=== PATIENT | female | born 1940 | race Caucasian/White ===

== ENCOUNTER 2017-12-11 08:45 | Inpatient (IN) | payer MEDICARE ==
[~2017-12-11] VITALS: Ht 154.9 cm; Wt 52.4 kg
[~2017-12-11 08:45] MED LIST: AMLODIPINE BESYL5 MG PO; ASPIR 8181 MG PO; ATENOLOL100 MG PO; BENAZEPRIL HCL40 MG PO; CHLORTHALIDONE25 MG PO; COLESTIPOL HCL1 GM PO; DIGOXIN125 MCG PO; HYDROCHLOROTHIA25 MG PO; LYRICA75 MG PO; METFORMIN HCL500 MG PO; METOCLOPRAMIDE10 MG PO; NORCO 5-325 TA1 EACH PO; PROTONIX40 MG PO; UNK BP MED
[2017-12-11] MEDS ORDERED: SODIUM CHLORIDE 0.9% 1000ML 1,000 ML IV STA (09:35)
[2017-12-11] MEDS ORDERED: PANTOPRAZOLE 40 MG 10ML VIAL IV STA (09:35)
[2017-12-11] MEDS ORDERED: DIATRIZOATE MEGL/DIATRIZOA SOD 30 ML BTL PO ONE (09:42)
[2017-12-11] MEDS ORDERED: ONDANSETRON HCL 4 MG ORAL DISINTEGRATING TAB PO ONE (09:45)
[2017-12-11 10:31] LABS: BASOPHILS % 0.2 % (0.0-1.0); HEMATOCRIT 36.6 % (34.2-44.1); HEMOGLOBIN 12.4 g/dL (12.0-16.0); LYMPHOCYTES # (AUTO) 1.1 (1.0-3.2); LYMPHOCYTES % 8.8 % (18.0-39.1); MEAN CORPUSCULAR HEMOGLOBIN 29.2 pg (28-32); MEAN CORPUSCULAR HGB CONC 33.9 g/dL (31-35); MEAN CORPUSCULAR VOLUME 86.3 fL (81-99); MONOCYTES # (AUTO) 1.6 (0.2-0.8); MONOCYTES % 13.4 % (4.4-11.3); NEUTROPHILS # (AUTO) 9.3 (2.1-6.9); PLATELET COUNT 232 x10e3/uL (140-360); RED BLOOD COUNT 4.24 x10e6/uL (3.6-5.1); RED CELL DISTRIBUTION WIDTH 15.2 % (11.7-14.4)
[2017-12-11 10:42] LABS: CLARITY,URINE HAZY (CLEAR); COLOR,URINE YELLOW (YELLOW)
[2017-12-11 10:44] LABS: LEUKOCYTE ESTERASE ,URINE NEGATIVE (NEGATIVE); NITRITE,URINE NEGATIVE (NEGATIVE); PROTEIN,URINE DIPSTICK 3+ (NEGATIVE)
[2017-12-11 10:45] LABS: BILIRUBIN,URINE NEGATIVE (NEGATIVE); KETONES,URINE NEGATIVE (NEGATIVE); URINE UROBILINOGEN 0.2 mg/dL (0.2 - 1)
[2017-12-11 10:52] LABS: ALBUMIN/GLOBULIN RATIO 0.6 (0.8-2.0); ANION GAP 17.9 mmol/L (8-16); CALCIUM 9.4 mg/dL (8.4-10.2); CREATININE, SERUM 0.97 mg/dL (0.57-1.11); MAGNESIUM 1.2 MG/DL (1.3-2.1); WBC,URINE (MAN) 21-50 /HPF (0-5)
[2017-12-11 10:53] LABS: AMORPHOUS SEDIMENT,URINE FEW (FEW); BACTERIA,URINE MANY /HPF; EPITHELIAL CELLS,URINE RARE /LPF
[2017-12-11 10:58] LABS: POTASSIUM 2.9 mmol/L (3.5-5.1)
--- NOTE | 2017-12-11 10:58 | Diagnostic Imaging Report ---
EXAMINATION: Chest, CHEST SINGLE (PORTABLE) INDICATION: Chest pain COMPARISON: Chest 2 views 03/25/2015 FINDINGS: LINES: None. Heart: Normal cardiac silhouette. Vascular: The pulmonary vasculature is within normal limits. Atherosclerotic calcifications of the aortic arch. Mediastinum: No mediastinal, hilar, or axillary mass or lymphadenopathy. Lungs: No parenchymal mass. No focal consolidation. Pleura: No pleural effusion. No pneumothorax. Bones: No acute osseous abnormality. Degenerative changes of the thoracic spine. Soft tissues: Normal. Impression: No acute radiographic abnormality. Signed by: Dr. Manuel Nugent M.D. on 12/11/2017 10:54 AM
[2017-12-11] MEDS ORDERED: SODIUM CHLORIDE 0.9% 50ML 50 ML ONE (11:07)
[2017-12-11] MEDS ORDERED: IOPAMIDOL 370 MG/ML 200 ML INFUS..BTL INJ ONE (11:07)
[2017-12-11 11:11] LABS: CREATINE KINASE MB 1.3 ng/mL (0-5.0); THYROID STIMULATING HORMONE 0.34 uIU/mL (0.350-4.940)
[2017-12-11 11:19] LABS: INR 1.21; PROTHROMBIN TIME 14.4 seconds (11.9-14.5)
[2017-12-11] MEDS ORDERED: MAGNESIUM SULFATE 2GM/50ML 50 ML IV ONE (11:30)
[2017-12-11] MEDS ORDERED: KCL 40MEQ/0.9% SOD CHL 1,000 ML IV ONE (11:30)
[2017-12-11 11:36] LABS: LYMPHOCYTES % (MANUAL) 5 % (19-48); MONOCYTES % (MANUAL) 14 % (3.4-9.0); NEUTROPHILS % (MANUAL) 81 % (40-74); PLATELET ESTIMATE ADEQUATE; PLATELET MORPHOLOGY COMMENT NORMAL; RBC MORPHOLOGY COMMENT NORMAL
--- NOTE | 2017-12-11 11:54 | Diagnostic Imaging Report ---
EXAM: CT Abdomen and Pelvis WITH contrast INDICATION: Abdominal pain COMPARISON: None. TECHNIQUE: Abdomen and pelvis were scanned utilizing a multidetector helical scanner from the lung base to the pubic symphysis after administration of contrast. Coronal and sagittal reformations were obtained. Protocol: General survey IV CONTRAST: 100 mL of Isovue 370 ORAL CONTRAST: Gastroview COMPLICATIONS: None RADIATION DOSE: Total Exam DLP: 206.4 mGy*cm. CTDIvol has been reviewed. It is below the limits set by the Radiation Protocol Committee (RPC). FINDINGS: LINES: None. Lower thorax: No parenchymal abnormality. No pneumothorax. No pleural effusion. Liver: No focal mass. No hepatomegaly. Normal parenchyma. The hepatic and portal veins are patent. Gallbladder: Cholelithiasis. No gallbladder distention. Biliary tree: No intrahepatic duct dilation. No extrahepatic duct dilation. Spleen: No splenomegaly. No focal mass. Pancreas: Normal parenchymal enhancement. No focal mass. Normal pancreatic duct. No peripancreatic inflammatory changes. Kidneys: No obstructing calculi. No hydronephrosis. No solid enhancing mass. Simple cyst in the left kidney. No perinephric soft tissue inflammatory changes. Adrenal glands: No adrenal nodules.. Bladder: Normal urinary bladder. Pelvic organs: Hysterectomy. No ovaries are visualized. GI: Bowel wall thickening is present in the region of the gastroesophageal junction, series 2 image 9. Otherwise, no bowel wall thickening. No air-fluid levels. The stomach and small bowel are normal. Numerous diverticuli are present in the descending and sigmoid colon, without adjacent soft tissue inflammatory changes. Normal appendix. A moderate amount of retained feces limits intraluminal evaluation of the colon. Peritoneum/retroperitoneum: No pneumoperitoneum. No ascites. No drainable fluid collection. Lymph nodes: No lymphadenopathy. . Vessels: The abdominal aorta and iliac vessels are patent. The celiac, superior mesenteric, and inferior mesenteric arteries are patent. Single bilateral renal arteries are patent. Scattered atherosclerotic calcifications. Bones: No focal abnormality. . Soft tissues: No focal abnormality. IMPRESSION: No acute abnormality of the abdomen and pelvis. Bowel wall thickening of the gastroesophageal junction may represent Chad fundoplication or hernia repair. Correlate with surgical history. Cholelithiasis. Diverticulosis without evidence of diverticulitis. Signed by: Dr. Manuel Nugent M.D. on 12/11/2017 11:51 AM
[2017-12-11] MEDS: METRONIDAZOLE 500MG/NS 100ML 100 ML IV SCH ×3 (12:00→19:20)
[2017-12-11] MEDS: PIPER-TAZ 3.375 GM 50 ML IV SCH ×2 (12:10→18:15)
--- OUTSIDE RECORDS SUMMARY | 2017-12-11 12:28 | XMS REPORT ---
Author [facility] Address Unknown Phone Unavailable Care Team Providers Care [employer] Name Role Phone FAWAD DAVIS Unavailable Unavailable Problems This patient has no known problems. Allergies, Adverse Reactions, Alerts This patient has no known allergies or adverse reactions. Medications This patient has no known medications. Results Test Description Test Time Test Comments Text Results Atomic Results Result Comments CHEST SINGLE (PORTABLE) [place] [address] Patient Name: BETH HANSON MR #: [id number] : 1940 Age/Sex: 77/F Req #: [id number] Adm Physician: Ordered by: FAWAD DAVIS MD Report #: [id number] Location: ER Room/Bed: Procedure: [id number] DX/CHEST SINGLE (PORTABLE) Exam Date: 12/11/17 Exam Time: 1000 REPORT STATUS: Signed EXAMINATION: Chest, CHEST SINGLE (PORTABLE) INDICATION: Chest pain COMPARISON : Chest 2 views 03/25/2015 FINDINGS: LINES: None. Heart : Normal cardiac silhouette. Vascular: The pulmonary vasculature is within normal limits. Atherosclerotic calcifications of the aortic arch. Mediastinum: No mediastinal, hilar, or axillary mass or lymphadenopathy. Lungs: No parenchymal mass. No focal consolidation. Pleura: No pleural effusion. No pneumothorax. Bones: No acute osseous abnormality. Degenerative changes of the thoracic spine. Soft tissues: Normal. Impression: No acute radiographic abnormality. Signed by: Dr. Ginna Nugent M.D. on 12/11/2017 10:54 AM Dictated By: GINNA NUGENT MD 53 Transcribed By: DAVIDSON on 12/11/171053 COPY TO: FAWAD DAVIS MD CT ABDOMEN/PELVIS W [place] [address] Patient Name: BETH HANSON MR #: [id number] : 1940 Age/Sex: 77/F Req #: [id number] Adm Physician: Ordered by: FAWAD DAVIS MD Report #: [id number] Location: ER Room/Bed: Procedure: [id number] CT/CT ABDOMEN/PELVIS W Exam Date: 12/11/17 Exam Time: 1117 REPORT STATUS: Signed EXAM: CT Abdomen and Pelvis WITH contrast INDICATION: Abdominal pain COMPARISON: None. TECHNIQUE: Abdomen and pelvis were scanned utilizing a multidetector helical scanner from the lung base to the pubic symphysis after administration of contrast. Coronal and sagittal reformations were obtained. Protocol: General survey IV CONTRAST: 100 mL of Isovue 370 ORAL CONTRAST: Gastroview COMPLICATIONS: None RADIATION DOSE: Total Exam DLP: 206.4 mGy*cm. CTDIvol has been reviewed. It is below the limits set by the Radiation Protocol Committee (RPC). FINDINGS: LINES: None. Lower thorax: No parenchymal abnormality. No pneumothorax. No pleural effusion. Liver: No focal mass. No hepatomegaly. Normal parenchyma. The hepatic and portal veins are patent. Gallbladder: Cholelithiasis. No gallbladder distention. Biliary tree: No intrahepatic duct dilation. No extrahepatic duct dilation. Spleen: No splenomegaly. No focal mass. Pancreas: Normal parenchymal enhancement. No focal mass. Normal pancreatic duct. No peripancreatic inflammatory changes. Kidneys : No obstructing calculi. No hydronephrosis. No solid enhancing mass. Simple cyst in the left kidney. No perinephric soft tissue inflammatory changes. Adrenal glands: No adrenal nodules.. Bladder: Normal urinary bladder. Pelvic organs: Hysterectomy. No ovaries are visualized. GI: Bowel wall thickening is present in the region of the gastroesophageal junction, series 2 image 9. Otherwise, no bowel wall thickening. No air-fluid levels. The stomach and small bowel are normal. Numerous diverticuli are present in the descending and sigmoid colon, without adjacent soft tissue inflammatory changes. Normal appendix. A moderate amount of retained feces limits intraluminal evaluation of the colon. Peritoneum/retroperitoneum: No pneumoperitoneum. No ascites. No drainable fluid collection. Lymph nodes: No lymphadenopathy. . Vessels: The abdominal aorta and iliac vessels are patent. The celiac, superior mesenteric , and inferior mesenteric arteries are patent. Single bilateral renal arteries are patent. Scattered atherosclerotic calcifications. Bones: No focal abnormality. . Soft tissues: No focal abnormality. IMPRESSION : No acute abnormality of the abdomen and pelvis. Bowel wall thickening of the gastroesophageal junction may represent Chad fundoplication or hernia repair. Correlate with surgical history. Cholelithiasis. Diverticulosis without evidence of diverticulitis. Signed by: Dr. Ginna Nugent M.D. on 12/11/2017 11:51 AM Dictated By: GINNA NUGENT MD 1151 Transcribed By: DAVIDSON on 12/11/17 1151 COPY TO: FAWAD DAVIS MD
[2017-12-11] MEDS ORDERED: ACETAMINOPHEN 325 MG TAB PO STA (14:29)
[2017-12-11] MEDS: ONDANSETRON HCL 4 MG ORAL DISINTEGRATING TAB PO PRN (14:30)
[2017-12-11] MEDS ORDERED: ACETAMINOPHEN 325 MG TAB PO ONE (15:00)
[2017-12-11] MEDS ORDERED: ACETAMINOPHEN 325 MG TAB PO PRN (15:30)
[2017-12-11] MEDS ORDERED: IBUPROFEN 600 MG TAB PO ONE (16:00)
[2017-12-11] MEDS: MORPHINE SULFATE 2 MG/ML SYR IV PRN (16:05)
[2017-12-11] MEDS ORDERED: METOPROLOL TARTRATE INJ 1 MG/ML VIAL IV PRN (16:15)
--- NOTE | 2017-12-11 17:36 | History and Physical ---
CHIEF COMPLAINT: A 77-year-old female comes in with abdominal pain. HISTORY OF PRESENTING ILLNESS: This is Ms. Penny, who has a multiple history of abdominal pain and abdominal symptoms, was in her usual state of health until the patient started with nausea and decreased appetite and had some fever, too. The patient did not go to the emergency room, but today the patient's pain was intractable and the patient came in and was admitted for diverticulitis. PAST MEDICAL HISTORY: History of hypertension. Patient has a history of hyperlipidemia, a history of gastrointestinal disorders in the past. Patient also has history of hiatal hernia. SURGICAL HISTORY: History of Chad's fundoplication x2, history of hysterectomy. MEDICATIONS: She does not remember but remembers atenolol dosage unknown and hydrochlorothiazide dosage unknown and also a statin dosage unknown. ALLERGIES: SEE NURSE'S NOTE. SOCIAL HISTORY: No ETOH. No IV drug abuse either and no drug abuse. REVIEW OF SYSTEMS: Negative for chest pain. Positive for some shortness of breath. Positive for nausea, no vomiting, no diarrhea, no constipation, no rectal bleed. No hematochezia, no hematemesis. Abdominal pain positive. No diplopia, no blurry vision. PHYSICAL EXAMINATION GENERAL: Patient is alert and oriented x3. VITAL SIGNS: Temperature 100.9. Pulse of 93. Blood pressure is 151/67. HEENT: Normocephalic, atraumatic. There is no icterus present. CARDIOVASCULAR: S1 and S2, regular, tachycardic. ABDOMEN: Tender in the left lower quadrant. No organomegaly, no masses found either. EXTREMITIES: No clubbing, no cyanosis, no edema. BACK: Normal. SKIN: No rashes present. NEUROLOGICAL: Alert and oriented x3. Chest x-ray normal. Abdominal CT shows multiple gallstones and multiple diverticula without inflammatory changes. Laboratory tests: CBC shows white count is 12, no left shift. Comprehensive metabolic panel: Potassium is 2.9, glucose of 151. Cardiac labs are normal. UA shows 21-50 thousand white cells and RBCs present. ASSESSMENT: Acute left lower quadrant abdominal pain suggesting diverticulitis but CT was negative, cholelithiasis on CT scan, and probable thickening of the gastroesophageal junction suggestive of Chad, and CT also shows diverticulosis without evidence of diverticulitis. PLAN: To keep the patient in. A surgical consult will be done with Dr. Quiñonez, too. Will continue monitoring the patient. Further recommendations on clinical course. Also, the patient had hypomagnesemia and hypokalemia, which we will continue. Also, for the urinary tract infection and cystitis, a urine culture has been sent and the patient has been put on Zosyn and Flagyl, too. We will see how the patient progresses tomorrow. Also will give her IV labetalol if needed for blood pressure control and also heart rate control. Job#: [id number] EV
[2017-12-11] MEDS ORDERED: KCL 20MEQ/.9 SOD CHL 1,000 ML IV ONE (18:00)
[2017-12-11] MEDS: PANTOPRAZOLE 40 MG 10ML VIAL IV SCH (18:08)
[2017-12-11] MEDS ORDERED: TOPROL XL50 MG PO (18:33)
[2017-12-11] MEDS ORDERED: DICYCLOMINE HCL20 MG PO (18:33)
[2017-12-11] MEDS ORDERED: ULTRAM50 MG PO (18:33)
[2017-12-11] MEDS ORDERED: XANAX0.5 MG PO (18:33)
[2017-12-11] MEDS ORDERED: DIPHENOXYLATE-1 EACH PO (18:33)
[2017-12-11 21:10] VITALS: BP 136/63
[2017-12-11 22:47] VITALS: BP 136/63
[2017-12-12] VITALS (7 sets, daily range): BP systolic 116–144; BP diastolic 58–65
[2017-12-12] MEDS: MORPHINE SULFATE 2 MG/ML SYR IV PRN (01:14)
[2017-12-12] MEDS: ONDANSETRON HCL 4 MG ORAL DISINTEGRATING TAB PO PRN ×3 (01:15→22:25)
[2017-12-12 05:01] LABS: CREATINE KINASE MB 1.4 ng/mL (0-5.0)
[2017-12-12] MEDS: PIPER-TAZ 3.375 GM 50 ML IV SCH ×4 (06:00→17:39)
[2017-12-12] MEDS: METRONIDAZOLE 500MG/NS 100ML 100 ML IV SCH ×4 (06:00→17:39)
[2017-12-12 06:27] LABS: BASOPHILS % 0.2 % (0.0-1.0); EOSINOPHILS % 0.2 % (0.0-6.0); HEMATOCRIT 28.1 % (34.2-44.1); HEMOGLOBIN 9.4 g/dL (12.0-16.0); LYMPHOCYTES # (AUTO) 0.9 (1.0-3.2); LYMPHOCYTES % 15.3 % (18.0-39.1); MEAN CORPUSCULAR HEMOGLOBIN 29.2 pg (28-32); MEAN CORPUSCULAR HGB CONC 33.5 g/dL (31-35); MEAN CORPUSCULAR VOLUME 87.3 fL (81-99); MONOCYTES # (AUTO) 0.9 (0.2-0.8); MONOCYTES % 15.3 % (4.4-11.3); NEUTROPHILS # (AUTO) 4.2 (2.1-6.9); NEUTROPHILS % 68.5 % (38.7-80.0); PLATELET COUNT 190 x10e3/uL (140-360); RED BLOOD COUNT 3.22 x10e6/uL (3.6-5.1); RED CELL DISTRIBUTION WIDTH 15.5 % (11.7-14.4)
[2017-12-12 06:47] LABS: ALANINE AMINOTRANSFERASE 10 IU/L (0-55); ALBUMIN 2.4 g/dL (3.5-5.0); ALBUMIN/GLOBULIN RATIO 0.8 (0.8-2.0); ALKALINE PHOSPHATASE 53 IU/L (40-150); ANION GAP 12.8 mmol/L (8-16); BLOOD UREA NITROGEN 9 mg/dL (7-26); BUN/CREATININE RATIO 12 (6-25); CALCIUM 8.4 mg/dL (8.4-10.2); CARBON DIOXIDE 21 mmol/L (22-29); CHLORIDE 106 mmol/L (98-107); CREATININE, SERUM 0.73 mg/dL (0.57-1.11); EST GLOMERULAR FILTRATION RATE > 60 ML/MIN (60-); GLUCOSE 99 mg/dL (74-118); MAGNESIUM 1.5 MG/DL (1.3-2.1); POTASSIUM 3.8 mmol/L (3.5-5.1); SODIUM 136 mmol/L (136-145)
[2017-12-12] MEDS: ACETAMINOPHEN 325 MG TAB PO PRN ×3 (07:26→18:20)
[2017-12-12] MEDS: PANTOPRAZOLE SOD 40 MG TABEC PO SCH (07:30)
[2017-12-12 08:34] LABS: CREATINE KINASE MB 1.2 ng/mL (0-5.0)
[2017-12-12] MEDS: DIGOXIN 0.125 MG TAB PO SCH (09:00)
[2017-12-12] MEDS: PANTOPRAZOLE 40 MG 10ML VIAL IV SCH (09:00)
[2017-12-12] MEDS: DICYCLOMINE HCL 20 MG TAB PO SCH ×4 (09:00→20:43)
[2017-12-12] MEDS: METOPROLOL SUCCINATE 50 MG TAB XL PO SCH (09:00)
[2017-12-12] MEDS: BENAZEPRIL HCL 10 MG TAB PO SCH (09:00)
[2017-12-12] MEDS: AMLODIPINE BESYLATE 5 MG TAB PO SCH (09:00)
[2017-12-12] MEDS: TRAMADOL HCL 50 MG TAB PO SCH ×2 (12:00→17:18)
[2017-12-12] MEDS: SODIUM CHLORIDE 0.45% 1,000 ML IV SCH (13:15)
--- NOTE | 2017-12-12 17:02 | Consultation ---
REFERRING PHYSICIAN: Dr. Esau Echevarria DATE OF CONSULTATION: December 12, 2017 HISTORY OF PRESENT ILLNESS: Patient is a 77-year-old female who was admitted to the hospital with complaints of mid abdominal pain. Patient says the pain started about almost a week ago. She had associated nausea, vomiting and diarrhea. Says the pain has persisted. She had a CT of the abdomen which revealed gallstones. She also says the pain goes to her back. She has no symptoms of jaundice. PAST MEDICAL HISTORY: Significant for hypertension. She has had previous laparoscopic repair of hiatal hernia. MEDICATIONS: At home are Xanax, amlodipine, benazepril, Bentyl, digoxin, diphenoxylate, hydrochlorothiazide, metoprolol and tramadol. ALLERGIES: She has no known allergies. FAMILY HISTORY: Noncontributory. SOCIAL HISTORY: The patient does not smoke cigarettes or drink alcohol. REVIEW OF SYSTEMS: Is as stated above otherwise. She has not had any fever or weight loss. PHYSICAL EXAMINATION GENERAL: The patient is awake and alert, in no distress. VITAL SIGNS: Normal. HEENT: Unremarkable. Sclera is nonicteric. NECK: Supple. No masses. LUNGS: Equal breath sounds, clear bilaterally. CARDIAC: Regular rate and rhythm with no murmur. ABDOMEN: Tender in the mid abdomen. There slight distention. There is no mass. No were signs of peritonitis. There is no organomegaly. EXTREMITIES: Have no edema. Pulses were palpable. NEUROLOGIC: Grossly intact. LABORATORY DATA: White blood cell count on admission was 12,000, repeat is 6,000, hemoglobin 12.4, hematocrit 36 and repeat is 9.4 and 28. Platelet count is normal. Chemistries are essentially normal with normal electrolytes, normal liver function tests, normal lipase. ASSESSMENT: A 77-year-old female with abdominal pain very likely due to gallbladder disease as she has gallstones. They see bowel wall thickening in the area of gastroesophageal junction. This is likely related to the previous hiatal hernia surgery. The patient likely will benefit from cholecystectomy which I plan to schedule for tomorrow. Procedure was explained to the patient including risks, benefits and alternatives. She understands the procedure. She has had the opportunity to ask questions. She is aware of the possible need for open surgery. Thank you for asking me to see Ms. Penny. Job#: [id number] DG
[2017-12-12] MEDS: ALPRAZOLAM 0.5 MG TAB PO SCH (20:43)
[2017-12-13] VITALS (8 sets, daily range): BP systolic 125–161; BP diastolic 60–68
[2017-12-13] MEDS: PIPER-TAZ 3.375 GM 50 ML IV SCH ×4 (01:20→18:00)
[2017-12-13] MEDS: METRONIDAZOLE 500MG/NS 100ML 100 ML IV SCH ×4 (02:06→18:00)
[2017-12-13] MEDS: TRAMADOL HCL 50 MG TAB PO SCH ×4 (02:07→18:00)
[2017-12-13] MEDS ORDERED: BUPIVACAINE HCL 0.5% INJ 30 ML VIAL INJ ONE (06:03)
[2017-12-13 06:41] LABS: BASOPHILS % 0.3 % (0.0-1.0); EOSINOPHILS % 0.6 % (0.0-6.0); HEMATOCRIT 29.5 % (34.2-44.1); HEMOGLOBIN 9.6 g/dL (12.0-16.0); LYMPHOCYTES # (AUTO) 1.7 (1.0-3.2); LYMPHOCYTES % 27.1 % (18.0-39.1); MEAN CORPUSCULAR HEMOGLOBIN 28.8 pg (28-32); MEAN CORPUSCULAR HGB CONC 32.5 g/dL (31-35); MEAN CORPUSCULAR VOLUME 88.6 fL (81-99); MONOCYTES # (AUTO) 0.7 (0.2-0.8); MONOCYTES % 11.7 % (4.4-11.3); NEUTROPHILS # (AUTO) 3.7 (2.1-6.9); NEUTROPHILS % 59.7 % (38.7-80.0); PLATELET COUNT 232 x10e3/uL (140-360); RED BLOOD COUNT 3.33 x10e6/uL (3.6-5.1); RED CELL DISTRIBUTION WIDTH 16.1 % (11.7-14.4)
[2017-12-13] MEDS ORDERED: FAMOTIDINE 20 MG/2 ML VIAL IV ONE (06:53)
[2017-12-13 07:05] LABS: ANION GAP 12.3 mmol/L (8-16); BLOOD UREA NITROGEN 7 mg/dL (7-26); BUN/CREATININE RATIO 9 (6-25); CALCIUM 8.3 mg/dL (8.4-10.2); CARBON DIOXIDE 22 mmol/L (22-29); CHLORIDE 102 mmol/L (98-107); CREATININE, SERUM 0.75 mg/dL (0.57-1.11); EST GLOMERULAR FILTRATION RATE > 60 ML/MIN (60-); GLUCOSE 93 mg/dL (74-118); POTASSIUM 3.3 mmol/L (3.5-5.1); SODIUM 133 mmol/L (136-145)
[2017-12-13] MEDS ORDERED: MORPHINE SULFATE 2 MG/ML SYR IV PRN (07:45)
[2017-12-13] MEDS ORDERED: MORPHINE SULFATE 4 MG/ML SYR IV PRN (07:45)
[2017-12-13] MEDS ORDERED: ONDANSETRON HCL INJ 2 MG/ML VIAL IV PRN (07:45)
--- NOTE | 2017-12-13 08:06 | Operative Report ---
DATE OF PROCEDURE: December 13, 2017 PREOPERATIVE DIAGNOSIS: Acute and chronic cholecystitis and cholelithiasis. POSTOPERATIVE DIAGNOSIS: Acute and chronic cholecystitis and cholelithiasis. PROCEDURES 1. Diagnostic laparoscopy. 2. Laparoscopic cholecystectomy. RELAY ASSEMBLER: None. ANESTHESIA: General endotracheal. INDICATIONS AND FINDINGS: Patient is a 77-year-old female admitted to the hospital with the complaints of midabdominal pain associated with nausea and vomiting. At surgery, the patient was found to have a gallbladder that massively distended containing sludge and stones. The cystic duct was about 3 mm in diameter. Common bile duct was about 6 mm in diameter. Liver, stomach and lower abdomen all appeared normal. TECHNIQUE: After adequate general endotracheal anesthesia and with the patient in the supine position, the abdomen was prepped and draped in a sterile fashion with Derik solution. Skin of the umbilicus was infiltrated with 0.5% Marcaine. An incision was made in the umbilicus. Abdominal wall was elevated and Veress needle was introduced. Pneumoperitoneum was then created. A 10-mm trocar and cannula was then passed through the umbilical wound. Laparoscopic camera was introduced. Initial laparoscopy revealed the gallbladder to be very distended. Liver, stomach and lower abdomen all appeared normal. A 10-mm trocar and cannula was placed in the epigastrium and two 5-mm trocars and cannulas placed in the right upper quadrant. These were placed under direct vision. The fundus of the gallbladder was grasped and retracted superiorly. Neck of the gallbladder was grasped and retracted laterally. Peritoneum over the neck of the gallbladder was incised. The gallbladder cystic duct junction was dissected free. Cystic artery was also dissected free. The neck of the gallbladder completely dissected free. The cystic artery was divided between Hemoclips close to the gallbladder. The cystic duct was also divided between Hemoclips with 3 clips being left on the common bile duct side. The gallbladder was then dissected free from the liver using scissors and electrocautery. Once it was entirely free, it was placed into an Endopouch and brought out through the epigastric cannula and contained sludge and multiple small stones. Gallbladder bed was inspected for hemostasis, which was seen to be adequate. It was irrigated with saline. All fluid aspirated and inspected once again for hemostasis, which was seen to be adequate. Instruments and cannulas were then removed. Pneumoperitoneum was evacuated. Wounds were then closed. Fascia in the umbilical and epigastric wound closed with 0 Vicryl. Skin to all wounds closed with raven. Sterile dressings were applied to each wound. The patient tolerated the procedure well. Estimated blood loss was 10 mL. There were no complications. All counts were correct. Patient was taken to the recovery room in satisfactory condition. Job#: [id number] RI cc:KITA MARLEY MD
[2017-12-13 09:00] LABS: EOSINOPHILS % (MANUAL) 1 % (0-7); LYMPHOCYTES % (MANUAL) 34 % (19-48); METAMYELOCYTES % (MANUAL) 1 % (0-0); MONOCYTES % (MANUAL) 8 % (3.4-9.0); NEUTROPHILS % (MANUAL) 54 % (40-74); PLATELET ESTIMATE ADEQUATE
[2017-12-13] MEDS: AMLODIPINE BESYLATE 5 MG TAB PO SCH (09:00)
[2017-12-13 09:01] LABS: ANISOCYTOSIS SLIGHT; HYPOCHROMASIA SLIGHT; PLATELET MORPHOLOGY COMMENT NORMAL; RBC MORPHOLOGY COMMENT NORMAL
[2017-12-13] MEDS: BENAZEPRIL HCL 10 MG TAB PO SCH (10:00)
[2017-12-13] MEDS: DIGOXIN 0.125 MG TAB PO SCH (10:00)
[2017-12-13] MEDS: PANTOPRAZOLE SOD 40 MG TABEC PO SCH (10:00)
[2017-12-13] MEDS: METOPROLOL SUCCINATE 50 MG TAB XL PO SCH (10:00)
[2017-12-13] MEDS: DICYCLOMINE HCL 20 MG TAB PO SCH ×4 (10:00→21:12)
[2017-12-13] MEDS: ACETAMINOPHEN 325 MG TAB PO PRN (11:00)
[2017-12-13] MEDS: HYDROCODONE/APAP 5MG-325MG TAB PO PRN ×2 (12:30→18:30)
[2017-12-13] MEDS ORDERED: ACETAMINOPHEN 1000 MG/100 ML IV PRN (14:00)
[2017-12-13] MEDS ORDERED: SODIUM CHLORIDE 0.9% 1000ML 500 ML IV ONE (14:00)
[2017-12-13] MEDS: SODIUM CHLORIDE 0.45% 1,000 ML IV SCH (15:55)
[2017-12-13] MEDS ORDERED: PROPOFOL IV EMULSION 10 MG/ML 20 ML VIAL ONE (18:24)
[2017-12-13] MEDS ORDERED: METOCLOPRAMIDE HCL 10 MG/2ML VIAL ONE (18:24)
[2017-12-13] MEDS ORDERED: GLYCOPYRROLATE INJ 1MG/ 5 ML SYR ONE (18:24)
[2017-12-13] MEDS ORDERED: LIDOCAINE HCL 2% LOCAL INJ 5 ML SDV VIAL INJ ONE (18:24)
[2017-12-13] MEDS ORDERED: ROCURONIUM BROMIDE 10 MG/ML 5ML VIAL ONE (18:24)
[2017-12-13] MEDS ORDERED: ONDANSETRON HCL INJ 2 MG/ML VIAL ONE (18:24)
[2017-12-13] MEDS ORDERED: SEVOFLURANE INHAL SOLN 250 ML PEN BTL ONE (18:24)
[2017-12-13] MEDS ORDERED: NEOSTIGMINE 5 MG/5ML SYR ONE (18:24)
[2017-12-13] MEDS ORDERED: DEXAMETHASONE SOD PHOS INJ 4 MG/ML VIAL ONE (18:24)
[2017-12-13] MEDS ORDERED: FENTANYL CITRATE/PF 100MCG/2 ML INJ ONE (18:30)
[2017-12-13] MEDS: ALPRAZOLAM 0.5 MG TAB PO SCH (21:12)
[2017-12-14 00:27] VITALS: BP 131/67
[2017-12-14] MEDS: TRAMADOL HCL 50 MG TAB PO SCH ×4 (01:01→17:11)
[2017-12-14] MEDS: METRONIDAZOLE 500MG/NS 100ML 100 ML IV SCH ×4 (01:01→18:27)
[2017-12-14] MEDS: PIPER-TAZ 3.375 GM 50 ML IV SCH ×3 (02:00→12:39)
[2017-12-14] MEDS: SODIUM CHLORIDE 0.45% 1,000 ML IV SCH ×2 (04:21→18:44)
[2017-12-14 04:57] VITALS: BP 134/65
[2017-12-14 07:15] LABS: FERRITIN 129.33 ng/mL (4.63-204.00)
[2017-12-14 07:38] LABS: FOLATE 9.4 ng/mL (7.0-15.4)
[2017-12-14] MEDS: PANTOPRAZOLE SOD 40 MG TABEC PO SCH (08:00)
[2017-12-14] MEDS: DICYCLOMINE HCL 20 MG TAB PO SCH ×2 (09:00→10:25)
[2017-12-14] MEDS: DIGOXIN 0.125 MG TAB PO SCH (09:13)
[2017-12-14] MEDS: AMLODIPINE BESYLATE 5 MG TAB PO SCH (09:13)
[2017-12-14] MEDS: BENAZEPRIL HCL 10 MG TAB PO SCH (09:13)
[2017-12-14] MEDS: DICYCLOMINE HCL 10 MG CAP PO SCH ×3 (09:13→20:46)
[2017-12-14] MEDS: METOPROLOL SUCCINATE 50 MG TAB XL PO SCH (09:13)
[2017-12-14] MEDS: HYDROCODONE/APAP 5MG-325MG TAB PO PRN (09:14)
[2017-12-14 12:00] VITALS: BP_SYST 126; BP_SYST 143; BP_DIAS 61; BP_DIAS 64
[2017-12-14 16:00] VITALS: BP 145/65
[2017-12-14] MEDS: PIPER-TAZ 3.375 GM 100 ML IV SCH (17:11)
[2017-12-14 20:09] VITALS: BP 141/64
[2017-12-14] MEDS: ALPRAZOLAM 0.5 MG TAB PO SCH (20:46)
[2017-12-14] MEDS: ACETAMINOPHEN 325 MG TAB PO PRN (20:46)
[2017-12-15] VITALS: BP 146/65
[2017-12-15] MEDS: PIPER-TAZ 3.375 GM 100 ML IV SCH ×2 (00:30→05:58)
[2017-12-15] MEDS: SODIUM CHLORIDE 0.45% 1,000 ML IV SCH (00:30)
[2017-12-15] MEDS: TRAMADOL HCL 50 MG TAB PO SCH ×2 (00:30→05:33)
[2017-12-15] MEDS: METRONIDAZOLE 500MG/NS 100ML 100 ML IV SCH ×2 (01:10→05:33)
[2017-12-15] MEDS ORDERED: POTASSIUM CHLORIDE 20 MEQ TAB CR PO STA (02:11)
[2017-12-15] MEDS ORDERED: POTASSIUM CHLORIDE 20 MEQ TAB CR PO ONE (03:30)
[2017-12-15 04:00] VITALS: BP 128/65
[2017-12-15] MEDS: ACETAMINOPHEN 325 MG TAB PO PRN (05:58)
[2017-12-15] MEDS ORDERED: CYANOCOBALAMIN INJ 1,000 MCG/ML VIAL IM SCH (09:00)
[2017-12-15] MEDS ORDERED: IRON-VITAMIN-MINERAL CAPSULE PO SCH (09:00)
[2017-12-15] MEDS ORDERED: DICYCLOMINE HCL 20 MG TAB PO SCH (09:00)
[2017-12-15] MEDS: AMLODIPINE BESYLATE 5 MG TAB PO SCH (09:58)
[2017-12-15] MEDS: PANTOPRAZOLE SOD 40 MG TABEC PO SCH (09:58)
[2017-12-15] MEDS: BENAZEPRIL HCL 10 MG TAB PO SCH (10:02)
[2017-12-15] MEDS: METOPROLOL SUCCINATE 50 MG TAB XL PO SCH (10:02)
[2017-12-15] MEDS: DIGOXIN 0.125 MG TAB PO SCH (10:02)
== END 2017-12-15 11:08 | disposition home or self-care (01) | DRG 419 ==
LOC: ER 09:34 → ERHOLD 12:25 → MED/SURG2 20:23
PROVIDERS: ADMIT Family Medicine; ATTEND Family Medicine
PROC: 0FT44ZZ Resection of Gallbladder, Percutaneous Endoscopic Approach (ICD-10-PCS; principal; 2017-12-13 06:55)
DX: K80.13 Calculus of gallbladder with acute and chronic cholecystitis with obstruction (principal); K21.9 Gastro-esophageal reflux disease without esophagitis; E78.5 Hyperlipidemia, unspecified; E83.42 Hypomagnesemia; E87.6 Hypokalemia; N30.90 Cystitis, unspecified without hematuria; I10 Essential (primary) hypertension; E86.0 Dehydration; K57.90 Diverticulosis of intestine, part unspecified, without perforation or abscess without bleeding; D64.9 Anemia, unspecified; R19.7 Diarrhea, unspecified
CPT/HCPCS: 36415; 71045; 74177; 80048; 80053; 81001; 82140; 82150; 82550; 82553; 82607; 82728; 82746; 83540; 83605; 83690; 83735; 84132; 84443; 84466; 84484; 85025; 85045; 85610; 85730; 87040; 87086; 87186; 88304; 93005; 99285; J1100; J2001; J2270; J2405; J2543; J2765; J7030; Q9967

== ENCOUNTER 2017-12-17 23:00 | Inpatient (IN) | payer MEDICARE ==
[~2017-12-17] VITALS: Ht 157.5 cm; Wt 49.1 kg
[~2017-12-17 23:00] MED LIST changes: +DICYCLOMINE HCL20 MG PO; +DIPHENOXYLATE-1 EACH PO; +TOPROL XL50 MG PO; +ULTRAM50 MG PO; +XANAX0.5 MG PO
[2017-12-17] MEDS ORDERED: ACETAMINOPHEN 1000 MG/100 ML IV STA (23:03)
--- OUTSIDE RECORDS SUMMARY | 2017-12-17 23:04 | XMS REPORT | Continuity of Care Document ---
Author Author [facility] Organization [facility] Address [address] [place] [address] Phone Unavailable Care Team Providers Care Embedded Linux Engineer Name Role Phone SHANE WORTHY MD PCP Insurance Providers Guarantor Beth Hanson Address [address] [place] [address] Email PTDECLINED Payer Medicare A & B Policy Number [id number] Subscriber's Name Beth Hanson Relationship 18 Self / Same As Patient Group Name RETIRED Effective Date 07 Advance Directives Directive Response Recorded Date/Time Does the patient have an advance directive? No 12/11/17 10:40pm If yes, is advance directive on file with [facility]? No 12/11/17 10:40pm If not on file with [facility] will patient provide a copy? No 12/11/17 10:40pm Do you have a Directive to Physician? No 12/11/17 12:03pm Do you have a Medical Power of Learning And Development Assistant? No 12/11/17 12:03pm Do you have an out of hospital Do Not Resuscitate Order? No 12/11/17 12:03pm Do you have any special needs we should be aware of? No 12/11/17 12:03pm Do you have a support person here with you today? Yes 12/11/17 12:03pm Did patient receive Notice of Privacy Practices? Yes 12/11/17 12:03pm Did patient receive patient rights and responsibilities? Yes 12/11/17 12:03pm Problems Medical Problem Onset Date Status Abdominal pain Unknown Cholelithiasis Unknown Dehydration Unknown Diverticulitis Unknown Hypokalemia Unknown Hypomagnesemia Unknown Nausea and vomiting Unknown Medications Current Home Medications Medication Dose Units Route Directions Days Qty Instructions Start Date Alprazolam (Xanax) 0.5 Mg Tablet 0.5 Mg Oral Bedtime Amlodipine Besylate 5 Mg Tablet 5 Mg Oral Daily Benazepril Hcl 40 Mg Tablet 40 Mg Oral Daily Dicyclomine Hcl 20 Mg Tablet 20 Mg Oral Four Times Daily Digoxin 125 Mcg Tablet 0.125 Mg Oral Daily Diphenoxylate Hcl/Atropine (Diphenoxylate-Atropine Tablet) 1 Each Tablet 1 Tab Oral Every 4 Hours Hydrochlorothiazide 25 Mg Tablet 25 Mg Oral Daily Metoprolol Succinate (Toprol Xl) 50 Mg Tab.er.24h 100 Mg Oral Daily 30 Tab Tramadol Hcl (Ultram) 50 Mg Tablet 50 Mg Oral Every 6 Hours Past Home Medications Medication Directions Ordered Status Aspirin (Aspir 81) 81 Mg Tablet.dr, 81 Mg Oral Daily Discontinued Atenolol 100 Mg Tablet, 100 Mg Oral Daily Discontinued Chlorthalidone 25 Mg Tablet, 25 Mg Oral Daily Discontinued Colestipol Hcl,Micronized (Colestipol Hcl) 1 Gm Tablet, 1 Gm Oral Daily Discontinued Hydrocodone Bit/Acetaminophen ([place] 5-325 Tablet) 1 Each Tablet, 1-2 Each Oral Every 4 Hours as needed for Pain Discontinued Metformin Hcl 500 Mg Tablet, 500 Mg Oral Daily Discontinued Metoclopramide Hcl 10 Mg Tablet, 10 Mg Oral Daily Discontinued Pantoprazole Sodium (Protonix) 40 Mg Suspdr.pkt, 40 Mg Oral Daily Discontinued Pregabalin (Lyrica) 75 Mg Cap, 75 Mg Oral 1-3DAILY Discontinued Unk Bp Med , Discontinued Social History Social History Problem Response Recorded Date/Time Onset Date Status Hx Psychiatric Problems No 12/11/2017 10:40pm Not Applicable Not Applicable Hx Eating Disorder No 12/11/2017 10:40pm Not Applicable Not Applicable Hx Substance Use Disorder No 12/11/2017 10:40pm Not Applicable Not Applicable Hx Depression No 12/11/2017 10:40pm Not Applicable Not Applicable Hx Alcohol Use No 12/11/2017 10:40pm Not Applicable Not Applicable Hx Substance Use Treatment No 12/11/2017 10:40pm Not Applicable Not Applicable Hx Physical Abuse No 12/11/2017 10:40pm Not Applicable Not Applicable Smoking Status Start Date Stop Date Never Smoker Hospital Discharge Instructions No hospital discharge instruction information available. Plan of Care Discharge Date 12/15/17 11:08am Disposition HOME, SELF-CARE Instructions/Education Provided Abdominal Pain - Adult Dehydration - Adult Diverticulitis Prescriptions See Medication Section Additional Instructions/Education Diet as tolerated Follow up with PCP Follow up with Dr. Quiñonez in (1) week [phone] Return to ER if pain persist or diarrhea Functional Status Query Response Date Recorded Assistive Devices None December 11, 2017 10:47pm Ambulation Ability Independent December 11, 2017 10:47pm Toileting Ability Minimum Assistance December 14, 2017 6:14pm Allergies, Adverse Reactions, Alerts No known allergies. Immunizations No immunization information available. Vital Signs Acute Vital Signs Vital Response Date/Time Temperature (Fahrenheit) 99.4 degrees F (97.6 - 99.5) 12/15/2017 4:00am Pulse Pulse Rate (adult) 70 bpm (60 - 90) 12/15/2017 7:08am Respiratory Rate 18 bpm (12 - 24) 12/15/2017 7:08am Blood Pressure 128/65 mm Hg 12/15/2017 4:00am Height 5 ft 1 in 12/11/2017 9:12pm Weight 115.44 lb 12/11/2017 9:12pm Body Mass Index 21.8 kg/m^2 12/11/2017 10:40pm Results Laboratory Results Test Name Result Units Flags Reference Collection Date/Time Result Date/ Time Comments White Blood Count 6.23 x10e3/uL 4.8-10.8 12/13/2017 6:02am 12/13/2017 6 :44am Red Blood Count 3.33 x10e6/uL L 3.6-5.1 12/13/2017 6:12/13/2017 6: 44am Hemoglobin 9.6 g/dL L 12.0-16.0 12/13/2017 6:0212/13/2017 6:44am Hematocrit 29.5 % L 34.2-44.1 12/13/2017 6:12/13/2017 6:44am Mean Corpuscular Volume 88.6 fL 81-99 12/13/2017 6:12/13/2017 6: 44am Mean Corpuscular Hemoglobin 28.8 pg 28-32 12/13/2017 6:12/13/2017 6:44am Mean Corpuscular Hemoglobin Concent 32.5 g/dL 31-35 12/13/2017 6:12/13/2017 6:44am Red Cell Distribution Width 16.1 % H 11.7-14.4 12/13/2017 6:2017 6:44am Platelet Count 232 x10e3/uL 140-360 12/13/2017 6:12/13/2017 6: 44am Neutrophils (%) (Auto) 59.7 % 38.7-80.0 12/13/2017 6:am 12/13/2017 6: 44am Lymphocytes (%) (Auto) 27.1 % 18.0-39.1 12/13/2017 6:12/13/2017 6: 44am Monocytes (%) (Auto) 11.7 % H 4.4-11.3 12/13/2017 6:am 12/13/2017 6: 44am Eosinophils (%) (Auto) 0.6 % 0.0-6.0 12/13/2017 6:12/13/2017 6: 44am Basophils (%) (Auto) 0.3 % 0.0-1.0 12/13/2017 6:12/13/2017 6:44am IM GRANULOCYTES % 0.6 % 0.0-1.0 12/13/2017 6:12/13/2017 6:44am Neutrophils # (Auto) 3.7 2.1-6.9 12/13/2017 6:02am 12/13/2017 6:44am Lymphocytes # (Auto) 1.7 1.0-3.2 12/13/2017 6:02am 12/13/2017 6:44am Monocytes # (Auto) 0.7 0.2-0.8 12/13/2017 6:02am 12/13/2017 6:44am Eosinophils # (Auto) 0.0 0.0-0.4 12/13/2017 6:02am 12/13/2017 6:44am Basophils # (Auto) 0.0 0.0-0.1 12/13/2017 6:02am 12/13/2017 6:44am Absolute Immature Granulocyte (auto 0.04 x10e3/uL 0-0.1 12/13/2017 6: 02am 12/13/2017 6:44am Differential Total Cells Counted 100 12/13/2017 6:02am 12/13/2017 9 :01am Neutrophils % (Manual) 54 % 40-74 12/13/2017 6:02am 12/13/2017 9:01am Lymphocytes % (Manual) 34 % 19-48 12/13/2017 6:02am 12/13/2017 9:01am Monocytes % (Manual) 8 % 3.4-9.0 12/13/2017 6:02am 12/13/2017 9:01am Eosinophils % (Manual) 1 % 0-7 12/13/2017 6:02am 12/13/2017 9:01am Metamyelocytes % 1 % H 0-0 12/13/2017 6:02am 12/13/2017 9:01am Reactive Lymphocytes 2 12/13/2017 6:02am 12/13/2017 9:01am Platelet Estimate ADEQUATE 12/13/2017 6:02am 12/13/2017 9:01am Platelet Morphology Comment NORMAL 12/13/2017 6:02am 12/13/2017 9: 01am Hypochromasia SLIGHT 12/13/2017 6:02am 12/13/2017 9:01am Anisocytosis SLIGHT 12/13/2017 6:02am 12/13/2017 9:01am Red Cell Morphology Comment NORMAL 12/13/2017 6:02am 12/13/2017 9: 01am Percent Reticulocyte Count 0.4 % L 0.8-2.2 12/14/2017 6:11am 12/14/2017 7:11am Prothrombin Time 14.4 seconds 11.9-14.5 12/11/2017 9:38am 12/11/2017 11 :29am Prothromb Time International Ratio 1.21 12/11/2017 9:382017 11:29am Oral Anticoagulant Therapy INR Values: 1. Low Intensity Therapy 1.5 - 2.0 2. Moderate Intensity Therapy 2.0 - 3.0 3. High Intensity Therapy(1) 2.5 - 3.5 4. High Intensity Therapy(2) 3.0 - 4.0 5. Panic Value INR > 5.0 Activated Partial Thromboplast Time 37.0 seconds H 23.8-35.5 12/11/2017 9 :38am 12/11/2017 11:08am Urine Color YELLOW YELLOW 12/11/2017 9:3812/11/2017 10:45am Urine Clarity HAZY CLEAR 12/11/2017 9:3812/11/2017 10:45am Urine Specific Hasty 1.030 H 1.010-1.025 12/11/2017 9:38am 2017 10:45am Urine pH 5 5 - 7 12/11/2017 9:38am 12/11/2017 10:45am Urine Leukocyte Esterase NEGATIVE NEGATIVE 12/11/2017 9:38am 2017 10:45am Urine Nitrite NEGATIVE NEGATIVE 12/11/2017 9:38am 12/11/2017 10:45am Urine Protein 3+ H NEGATIVE 12/11/2017 9:38am 12/11/2017 10:45am Urine Glucose (UA) NEGATIVE NEGATIVE 12/11/2017 9:38am 12/11/2017 10: 45am Urine Ketones NEGATIVE NEGATIVE 12/11/2017 9:38am 12/11/2017 10:45am Urine Urobilinogen 0.2 mg/dL 0.2 - 1 12/11/2017 9:38am 12/11/2017 10: 45am Urine Bilirubin NEGATIVE NEGATIVE 12/11/2017 9:38am 12/11/2017 10: 45am Urine Blood 3+ H NEGATIVE 12/11/2017 9:38am 12/11/2017 10:45am Urine WBC 21-50 /HPF H 0-5 12/11/2017 9:38am 12/11/2017 10:53am Urine RBC 6-10 /HPF H 0-5 12/11/2017 9:38am 12/11/2017 10:53am Urine Bacteria MANY /HPF H NONE 12/11/2017 9:38am 12/11/2017 10:53am Urine Epithelial Cells RARE /LPF NONE 12/11/2017 9:38am 12/11/2017 10: 53am Urine Amorphous Sediment FEW FEW 12/11/2017 9:38am 12/11/2017 10: 53am Sodium Level 133 mmol/L L 136-145 12/13/2017 6:07am 12/13/2017 7:11am Potassium Level 3.5 mmol/L 3.5-5.1 12/15/2017 7:55am 12/15/2017 8:17am Chloride Level 102 mmol/L 98-107 12/13/2017 6:0712/13/2017 7:11am Carbon Dioxide Level 22 mmol/L 22-29 12/13/2017 6:0712/13/2017 7: 11am Anion Gap 12.3 mmol/L 8-16 12/13/2017 6:0712/13/2017 7:11am Blood Urea Nitrogen 7 mg/dL 7-12/13/2017 6:0712/13/2017 7:11am Creatinine 0.75 mg/dL 0.57-1.11 12/13/2017 6:0712/13/2017 7:11am BUN/Creatinine Ratio 9 6-25 12/13/2017 6:0712/13/2017 7:11am Estimat Glomerular Filtration Rate > 60 ML/MIN 60- 12/13/2017 6:07 7:11am Ranges were taken from the National Kidney Disease Education Program and the National Kid[employer] Foundation literature. Reference ranges: 60 or greater: Normal 16-59 (for 3 consecutive months): Chronic kidney disease 15 or less: Kidney failure Glucose Level 93 mg/dL 74-118 12/13/2017 6:0712/13/2017 7:11am Calcium Level 8.3 mg/dL L 8.4-10.2 12/13/2017 6:0712/13/2017 7:11am Lactic Acid Level 20.1 MG/DL H 4.5-19.8 12/11/2017 1:46pm 12/11/2017 2: 26pm Magnesium Level 1.5 MG/DL 1.3-2.1 12/12/2017 5:59am 12/12/2017 7:01am Iron Level 18 ug/dL L 50-170 12/14/2017 6:11am 12/14/2017 7:34am Total Iron Binding Capacity 200 ug/dL L 261-478 12/14/2017 6:11am 2017 7:34am Percent Iron Saturation 9 % L 15-50 12/14/2017 6:11am 12/14/2017 7:34am Transferrin 143 mg/dL L 180-382 12/14/2017 6:11am 12/14/2017 7:34am Ferritin 129.33 ng/mL 4.63-204.00 12/14/2017 6:11am 12/14/2017 7:34am Total Bilirubin 0.3 mg/dL 0.2-1.2 12/12/2017 5:59am 12/12/2017 7:01am Aspartate Amino Transf (AST/SGOT) 17 IU/L 5-34 12/12/2017 5:59am 2017 7:01am Alanine Aminotransferase (ALT/SGPT) 10 IU/L 0-55 12/12/2017 5:59am 7:01am Ammonia 25 UG/DL L 31-123 12/11/2017 9:38am 12/11/2017 10:59am Total Protein 5.6 g/dL # L 6.5-8.1 12/12/2017 5:59am 12/12/2017 7:01am Albumin 2.4 g/dL L 3.5-5.0 12/12/2017 5:59am 12/12/2017 7:01am Globulin 3.2 g/dL 2.3-3.5 12/12/2017 5:59am 12/12/2017 7:01am Albumin/Globulin Ratio 0.8 0.8-2.0 12/12/2017 5:59am 12/12/2017 7: 01am Alkaline Phosphatase 53 IU/L 40-150 12/12/2017 5:59am 12/12/2017 7: 01am Creatine Kinase 101 IU/L 29-168 12/12/2017 7:00am 12/12/2017 8:28am Creatine Kinase MB 1.20 ng/mL 0-5.0 12/12/2017 7:00am 12/12/2017 8: 37am Troponin I 0.004 ng/mL 0-0.300 12/12/2017 7:00am 12/12/2017 8:37am Amylase Level 24 U/L L 25-125 12/11/2017 9:38am 12/11/2017 10:58am Lipase 32 U/L 8-78 12/11/2017 9:38am 12/11/2017 10:58am Vitamin B12 Level 406 pg/mL 213-816 12/14/2017 6:11am 12/14/2017 7: 44am Folate 9.4 ng/mL 7.0-15.4 12/14/2017 6:11am 12/14/2017 7:44am Thyroid Stimulating Hormone (TSH) 0.340 uIU/mL L 0.350-4.940 12/11/2017 9 :38am 12/11/2017 11:15am Microbiology Results Procedure Source Organism/Result Collection Date/Time Result Date/Time Result Status Urine Culture Urine,Clean Catch ESCHERICHIA COLI 12/11/2017 9:38am 2017 7:35am Final Blood Culture Blood NO GROWTH AFTER 24 HOURS 12/13/2017 3:00pm 12/14/2017 3:06pm Preliminary Procedures Procedure Status Date Provider(s) Laparoscopic cholecystectomy Completed 12/13/17 HA QUIÑONEZ MD Computed tomography of abdomen and pelvis with contrast Active 12/11/17 FAWAD DAVIS MD Encounters Encounter Location Arrival/Admit Date Discharge/Depart Date Attending Provider Discharged Inpatient [facility] 12/11/17 12:25pm 11:08am KITA MARLEY MD
[2017-12-17] MEDS ORDERED: PIPER-TAZ 3.375 GM 50 ML IV STA (23:14)
[2017-12-17] MEDS ORDERED: DIATRIZOATE MEGL/DIATRIZOA SOD 30 ML BTL PO ONE (23:15)
[2017-12-17] MEDS ORDERED: SODIUM CHLORIDE 0.9% 1000ML 1,000 ML IV ONE ×2 (23:15→23:45)
[2017-12-17 23:20] LABS: BASOPHILS % 0.1 % (0.0-1.0); HEMATOCRIT 35.6 % (34.2-44.1); HEMOGLOBIN 12.1 g/dL (12.0-16.0); LYMPHOCYTES # (AUTO) 2.7 (1.0-3.2); LYMPHOCYTES % 9.8 % (18.0-39.1); MEAN CORPUSCULAR HEMOGLOBIN 28.7 pg (28-32); MEAN CORPUSCULAR VOLUME 84.6 fL (81-99); MONOCYTES # (AUTO) 1.3 (0.2-0.8); MONOCYTES % 4.8 % (4.4-11.3); NEUTROPHILS # (AUTO) 22.9 (2.1-6.9); NEUTROPHILS % 84.2 % (38.7-80.0); PLATELET COUNT 464 x10e3/uL (140-360); RED BLOOD COUNT 4.21 x10e6/uL (3.6-5.1)
[2017-12-17 23:33] LABS: ALANINE AMINOTRANSFERASE 8 IU/L (0-55); ALBUMIN 2.6 g/dL (3.5-5.0); ALBUMIN/GLOBULIN RATIO 0.5 (0.8-2.0); ALKALINE PHOSPHATASE 58 IU/L (40-150); AMYLASE 67 U/L (25-125); BLOOD UREA NITROGEN 5 mg/dL (7-26); CARBON DIOXIDE 21 mmol/L (22-29); CHLORIDE 97 mmol/L (98-107); CREATINE KINASE 34 IU/L (29-168); GLUCOSE 143 mg/dL (74-118); LIPASE 274 U/L (8-78); SODIUM 133 mmol/L (136-145)
[2017-12-17] MEDS ORDERED: SODIUM CHLORIDE 0.9% 1000ML 1,000 ML ONE (23:42)
[2017-12-17 23:44] LABS: B-TYPE NATRIURETIC PEPTIDE2 118.8 pg/mL (0-100); BAND NEUTROPHILS % (MANUAL) 6 %; LYMPHOCYTES % (MANUAL) 9 % (19-48); MONOCYTES % (MANUAL) 6 % (3.4-9.0); NEUTROPHILS % (MANUAL) 79 % (40-74); PLATELET ESTIMATE SLIGHTLY INCREASED; PLATELET MORPHOLOGY COMMENT NORMAL; RBC MORPHOLOGY COMMENT NORMAL
[2017-12-17 23:48] LABS: BUN/CREATININE RATIO 7 (6-25); CREATININE, SERUM 0.76 mg/dL (0.57-1.11); EST GLOMERULAR FILTRATION RATE > 60 ML/MIN (60-)
[2017-12-17] MEDS ORDERED: POTASSIUM CHLORIDE 20MEQ/100ML 100 ML IV STA (23:59)
[2017-12-18] MEDS ORDERED: METOPROLOL TARTRATE INJ 1 MG/ML VIAL IV ONE (00:30)
[2017-12-18] MEDS ORDERED: CALCIUM CHLORIDE 10% 1.36 MEQ/ML 10ML SYR IV STA (00:35)
--- NOTE | 2017-12-18 00:42 | Diagnostic Imaging Report ---
EXAM: CHEST SINGLE (PORTABLE), AP 1 view INDICATION: Fever COMPARISON: AP view of the chest December 11, 2017 FINDINGS: LINES/TUBES: None LUNGS: No consolidations or edema. PLEURA: No effusions or pneumothorax. HEART AND MEDIASTINUM: Normal size and contour. BONES AND SOFT TISSUES: No acute findings. IMPRESSION: No consolidations. Signed by: Dr. Mayte Field M.D. on 12/18/2017 12:38 AM
[2017-12-18] MEDS ORDERED: SODIUM CHLORIDE 0.9% 50ML 50 ML ONE ×2 (00:48→01:14)
[2017-12-18] MEDS ORDERED: IOPAMIDOL 370 MG/ML 200 ML INFUS..BTL INJ ONE (00:48)
[2017-12-18 00:49] LABS: CLARITY,URINE CLEAR (CLEAR); COLOR,URINE YELLOW (YELLOW); LEUKOCYTE ESTERASE ,URINE NEGATIVE (NEGATIVE); NITRITE,URINE NEGATIVE (NEGATIVE)
[2017-12-18 00:50] LABS: BILIRUBIN,URINE NEGATIVE (NEGATIVE); KETONES,URINE NEGATIVE (NEGATIVE); PROTEIN,URINE DIPSTICK 3+ (NEGATIVE); URINE UROBILINOGEN 0.2 mg/dL (0.2 - 1)
[2017-12-18 00:52] LABS: BACTERIA,URINE MODERATE /HPF; EPITHELIAL CELLS,URINE FEW /LPF; RBC,URINE 0-5 /HPF (0-5); WBC,URINE (MAN) 0-5 /HPF (0-5)
[2017-12-18] MEDS ORDERED: MAGNESIUM SULFATE 2GM/50ML 50 ML IV ONE (01:00)
--- NOTE | 2017-12-18 01:44 | Diagnostic Imaging Report ---
EXAM: CT ABDOMEN AND PELVIS with IV CONTRAST DATE: 12/18/2017 12:00 AM Time stamp on Exam: 0112 hours INDICATION: Fever, nausea and vomiting, status post recent cholecystectomy COMPARISON: CT of the abdomen and pelvis December 11, 2017 TECHNIQUE: The abdomen and pelvis were scanned using a multidetector helical scanner. Coronal and sagittal reformations were obtained. Routine protocol performed. IV Contrast: 100 cc Isovue-370 Oral Contrast: Gastrografin CTDIvol has been reviewed. It is below the limits set by the Radiation Protocol Committee (RPC). FINDINGS: LOWER THORAX: Right middle lobe and lingular atelectasis. LIVER: No masses BILIARY: Cholecystectomy. Trace fluid in the gallbladder bed. No ductal dilation. SPLEEN: Stable 1.2 cm focus of enhancement in the spleen, possibly a flash filling hemangioma. PANCREAS: No masses ADRENALS: No nodules KIDNEYS: Symmetric perfusion. No enhancing masses. No hydronephrosis. Stable left renal cyst. Duplicate left collecting system. GI TRACT: No distention, wall thickening or evidence of obstruction. Surgical changes of fundoplication. Colonic diverticulosis, predominantly of the sigmoid colon without evidence of acute diverticulitis. VESSELS: Atherosclerotic changes of the abdominal aorta without aneurysm. PERITONEUM/RETROPERITONEUM: Trace expected postsurgical fluid in the gallbladder bed. LYMPH NODES: No lymphadenopathy REPRODUCTIVE ORGANS: Uterus and ovaries are not visualized. BLADDER: Cardozo catheter within the bladder. SOFT TISSUES: Small amount of air underneath port sites in the subcutaneous tissues and right rectus muscles. BONES: No suspicious bone lesions. IMPRESSION: Expected postsurgical changes of recent cholecystectomy. No evidence of an abscess. Signed by: Dr. Mayte Field M.D. on 12/18/2017 1:41 AM
[2017-12-18] MEDS ORDERED: ONDANSETRON HCL 4 MG ORAL DISINTEGRATING TAB PO PRN (03:30)
[2017-12-18] MEDS: SODIUM CHLORIDE 0.9% 1000ML 1,000 ML IV SCH ×4 (04:42→21:40)
[2017-12-18] MEDS: PIPER-TAZ 3.375 GM 50 ML IV SCH ×3 (06:10→21:40)
[2017-12-18 16:15] VITALS: BP 134/65
[2017-12-18 16:30] VITALS: BP 134/65
[2017-12-18 17:31] VITALS: BP 134/65
--- NOTE | 2017-12-18 17:50 | Consultation ---
DATE OF CONSULTATION: December 18, 2017 CHIEF COMPLAINT: Pneumonia. HISTORY OF PRESENT ILLNESS: Patient is a 77-year-old female who is 1 week status post cholecystectomy. Patient was doing well until the last few days when she developed decreased appetite with some loose stool, but denies fever, chills or abdominal pain. She had admitted to some cough. PAST MEDICAL HISTORY: Significant for hypertension, hyperlipidemia and atrial fibrillation. PAST SURGICAL HISTORY: Positive for hiatal hernia, hysterectomy and recent cholecystectomy. ALLERGIES: PATIENT HAS NO KNOWN DRUG ALLERGIES. SOCIAL HABITS: She does not smoke or drink alcohol. REVIEW OF SYSTEMS: No chest pain or shortness of breath at present time. No abdominal pain. PHYSICAL EXAMINATION VITAL SIGNS: Stable. She has a temperature of 100. GENERAL: Patient is awake, alert, in no apparent distress. HEENT: Sclerae are nonicteric. NECK: Supple. LUNGS: Clear. HEART: Regular rate and rhythm. ABDOMEN: Soft. Mild guarding in the epigastrium from recent surgery but no rebound tenderness or localized pain. EXTREMITIES: Without cyanosis or edema. LABS: Current white cell count 27,000, hemoglobin 12, platelet count 464. Liver function tests within normal limits with lipase 274. Chest x-ray is unremarkable for any infiltrates. CT of the abdomen showed change consistent with recent cholecystectomy with no evidence of abnormal collections or bowel or biliary tree dilatations. ASSESSMENT: Post cholecystectomy leukocytosis and poor appetite. No evidence of abscess on CT scan. PLAN: Antibiotic coverage. Workup for source of sepsis. So far, no evidence of retained duct stone or bile leak. Job#: [id number]
[2017-12-18] MEDS ORDERED: TRAMADOL HCL 50 MG TAB PO PRN (19:00)
--- NOTE | 2017-12-18 19:32 | Diagnostic Imaging Report ---
EXAM: MRI MRCP WO INDICATION: Fever, nausea and vomiting status post recent cholecystectomy. Evaluate for retained stone in the common bile duct COMPARISON: CT of the abdomen and pelvis with IV contrast December 18, 2017 TECHNIQUE: MRCP protocol performed without the administration of IV contrast. FINDINGS: LOWER THORAX: Unremarkable. LIVER: No masses BILIARY: Cholecystectomy with trace fluid in the cholecystectomy bed. No biliary dilation. The common bile duct is normal in caliber measuring 6 mm without evidence of a filling defect. SPLEEN: Normal PANCREAS: No inflammatory changes ADRENALS: No nodules KIDNEYS/URETERS: Simple cyst measuring 4.2 cm arising from the interpolar region of the left kidney. Duplicated left kidney renal morphology. Normal appearance of the right kidney. Trace perinephric fat stranding. GI TRACT: Unremarkable, partially visualized LYMPH NODES: No lymphadenopathy VESSELS: Unremarkable PERITONEUM / RETROPERITONEUM: No free fluid. BONES: Unremarkable SOFT TISSUES: Focus of air in the anterior abdominal wall at port site. No abnormal subcutaneous fluid collection. IMPRESSION: Expected trace fluid in the gallbladder bed status post recent cholecystectomy. No biliary dilation. Normal size of the common bile duct without evidence of retained gallstone. Signed by: Dr. Mayte Field M.D. on 12/18/2017 7:28 PM
[2017-12-18 20:00] VITALS: BP 145/63
[2017-12-18] MEDS: ALPRAZOLAM 0.5 MG TAB PO SCH (20:26)
[2017-12-18] MEDS: ACETAMINOPHEN 1000 MG/100 ML IV PRN ×2 (20:26→21:40)
[2017-12-18] MEDS: DICYCLOMINE HCL 20 MG TAB PO SCH (20:26)
[2017-12-18] MEDS: DIPHENOXYLATE/ATROPINE TAB PO PRN (22:14)
[2017-12-19] VITALS (8 sets, daily range): BP systolic 132–158; BP diastolic 54–72
[2017-12-19] MEDS: PIPER-TAZ 3.375 GM 50 ML IV SCH ×3 (05:00→22:10)
[2017-12-19 06:10] LABS: BASOPHILS % 0.1 % (0.0-1.0); EOSINOPHILS % 0.4 % (0.0-6.0); HEMATOCRIT 26.5 % (34.2-44.1); HEMOGLOBIN 8.5 g/dL (12.0-16.0); LYMPHOCYTES # (AUTO) 2.6 (1.0-3.2); LYMPHOCYTES % 23.6 % (18.0-39.1); MEAN CORPUSCULAR HEMOGLOBIN 28.6 pg (28-32); MEAN CORPUSCULAR HGB CONC 32.1 g/dL (31-35); MEAN CORPUSCULAR VOLUME 89.2 fL (81-99); MONOCYTES # (AUTO) 0.6 (0.2-0.8); NEUTROPHILS # (AUTO) 7.9 (2.1-6.9); PLATELET COUNT 315 x10e3/uL (140-360); RED BLOOD COUNT 2.97 x10e6/uL (3.6-5.1); RED CELL DISTRIBUTION WIDTH 16.6 % (11.7-14.4)
[2017-12-19 06:32] LABS: ALBUMIN/GLOBULIN RATIO 0.5 (0.8-2.0); ALKALINE PHOSPHATASE 41 IU/L (40-150); ANION GAP 13.1 mmol/L (8-16); BLOOD UREA NITROGEN 5 mg/dL (7-26); BUN/CREATININE RATIO 8 (6-25); CALCIUM 7.5 mg/dL (8.4-10.2); CARBON DIOXIDE 22 mmol/L (22-29); CHLORIDE 108 mmol/L (98-107); EST GLOMERULAR FILTRATION RATE > 60 ML/MIN (60-); GLUCOSE 85 mg/dL (74-118); POTASSIUM 3.1 mmol/L (3.5-5.1)
[2017-12-19 06:33] LABS: ALANINE AMINOTRANSFERASE < 6 IU/L (0-55)
[2017-12-19 06:35] LABS: SODIUM 140 mmol/L (136-145)
[2017-12-19] MEDS ORDERED: MAGNESIUM SULFATE 2GM/50ML 50 ML IV ONE (07:30)
[2017-12-19] MEDS ORDERED: NON-FORMULARY MEDICATION (Benazepril Hcl 40 MG) PO SCH (09:00)
[2017-12-19] MEDS: DIGOXIN 0.125 MG TAB PO SCH (09:15)
[2017-12-19] MEDS: HYDROCHLOROTHIAZIDE 25 MG TAB PO SCH (09:15)
[2017-12-19] MEDS: DICYCLOMINE HCL 20 MG TAB PO SCH ×4 (09:15→21:00)
[2017-12-19] MEDS: AMLODIPINE BESYLATE 5 MG TAB PO SCH (09:15)
[2017-12-19] MEDS: BENAZEPRIL HCL 10 MG TAB PO SCH (09:15)
[2017-12-19] MEDS: METOPROLOL SUCCINATE 50 MG TAB XL PO SCH (09:15)
[2017-12-19] MEDS ORDERED: HYDROCODONE/APAP 10MG-325MG TAB PO PRN (11:15)
[2017-12-19] MEDS: SODIUM CHLORIDE 0.9% 1000ML 1,000 ML IV SCH ×2 (12:14→19:27)
[2017-12-19] MEDS: GUAIFENESIN/DEXTROMETHORPHAN LIQD 5 ML UDC NG PRN (19:20)
[2017-12-19] MEDS: ALPRAZOLAM 0.5 MG TAB PO SCH (21:00)
[2017-12-20] MEDS: SODIUM CHLORIDE 0.9% 1000ML 1,000 ML IV SCH ×3 (01:16→20:00)
[2017-12-20] MEDS: GUAIFENESIN/DEXTROMETHORPHAN LIQD 5 ML UDC NG PRN ×2 (01:16→19:40)
[2017-12-20] MEDS: PIPER-TAZ 3.375 GM 50 ML IV SCH ×3 (05:22→21:59)
[2017-12-20 05:28] VITALS: BP 153/73
[2017-12-20 06:19] LABS: BASOPHILS % 0.2 % (0.0-1.0); EOSINOPHILS # (AUTO) 0.1 (0.0-0.4); EOSINOPHILS % 0.7 % (0.0-6.0); HEMATOCRIT 24.9 % (34.2-44.1); HEMOGLOBIN 8.3 g/dL (12.0-16.0); LYMPHOCYTES # (AUTO) 2.3 (1.0-3.2); LYMPHOCYTES % 25.8 % (18.0-39.1); MEAN CORPUSCULAR HEMOGLOBIN 28.7 pg (28-32); MEAN CORPUSCULAR HGB CONC 33.3 g/dL (31-35); MEAN CORPUSCULAR VOLUME 86.2 fL (81-99); MONOCYTES # (AUTO) 0.5 (0.2-0.8); MONOCYTES % 5.5 % (4.4-11.3); NEUTROPHILS % 67.2 % (38.7-80.0); PLATELET COUNT 345 x10e3/uL (140-360); RED BLOOD COUNT 2.89 x10e6/uL (3.6-5.1); RED CELL DISTRIBUTION WIDTH 16.1 % (11.7-14.4)
[2017-12-20 06:47] LABS: ALANINE AMINOTRANSFERASE 7 IU/L (0-55); ALBUMIN/GLOBULIN RATIO 0.5 (0.8-2.0); ALKALINE PHOSPHATASE 46 IU/L (40-150); BLOOD UREA NITROGEN < 5 mg/dL (7-26); CALCIUM 7.8 mg/dL (8.4-10.2); CARBON DIOXIDE 21 mmol/L (22-29); CHLORIDE 108 mmol/L (98-107); CREATININE, SERUM 0.55 mg/dL (0.57-1.11); EST GLOMERULAR FILTRATION RATE > 60 ML/MIN (60-); GLUCOSE 92 mg/dL (74-118); SODIUM 139 mmol/L (136-145)
[2017-12-20 06:50] LABS: BUN/CREATININE RATIO 9 (6-25)
[2017-12-20 06:51] LABS: MAGNESIUM 1.1 MG/DL (1.3-2.1)
[2017-12-20] MEDS ORDERED: MAGNESIUM SULFATE 2GM/50ML 50 ML IV ONE (07:40)
[2017-12-20 07:52] VITALS: BP 149/72
[2017-12-20] MEDS: DIGOXIN 0.125 MG TAB PO SCH (08:45)
[2017-12-20] MEDS: DICYCLOMINE HCL 20 MG TAB PO SCH ×4 (08:45→21:59)
[2017-12-20] MEDS: AMLODIPINE BESYLATE 5 MG TAB PO SCH (08:45)
[2017-12-20] MEDS: METOPROLOL SUCCINATE 50 MG TAB XL PO SCH (08:45)
[2017-12-20] MEDS: HYDROCHLOROTHIAZIDE 25 MG TAB PO SCH (08:45)
[2017-12-20] MEDS: BENAZEPRIL HCL 10 MG TAB PO SCH (08:45)
[2017-12-20 18:15] LABS: ALANINE AMINOTRANSFERASE 7 IU/L (0-55); ALBUMIN 2.2 g/dL (3.5-5.0); ALBUMIN/GLOBULIN RATIO 0.5 (0.8-2.0); ALKALINE PHOSPHATASE 50 IU/L (40-150); ANION GAP 14.2 mmol/L (8-16); BLOOD UREA NITROGEN < 5 mg/dL (7-26); CALCIUM 8.3 mg/dL (8.4-10.2); CARBON DIOXIDE 22 mmol/L (22-29); CHLORIDE 103 mmol/L (98-107); CREATININE, SERUM 0.65 mg/dL (0.57-1.11); EST GLOMERULAR FILTRATION RATE > 60 ML/MIN (60-); GLUCOSE 129 mg/dL (74-118); POTASSIUM 3.2 mmol/L (3.5-5.1); SODIUM 136 mmol/L (136-145)
[2017-12-20 18:16] LABS: BUN/CREATININE RATIO 8 (6-25)
[2017-12-20] MEDS: DIPHENOXYLATE/ATROPINE TAB PO PRN (19:40)
[2017-12-20 20:00] VITALS: BP 152/72
--- NOTE | 2017-12-20 21:16 | Consultation ---
DATE OF CONSULTATION: December 20, 2017 ATTENDING PHYSICIAN: Dr. Kita Echevarria CARDIOLOGY CONSULTATION CLINICAL HISTORY: This is a 77-year-old white woman known to me from previous evaluation, referred by Dr. Kita Echevarria for cardiovascular evaluation in the setting of urinary tract infection, sepsis, and tachycardia with rate 150 beats per minute. This patient has history of left bundle-branch block and supraventricular tachycardia. She also has history of moderate mitral regurgitation, diabetes and hypertension. In the past, she was managed with atenolol. She does not come to the office very regularly. On the day of admission, she was sleeping when she reportedly became unconscious for a few seconds. She cannot tell me whether she in fact fell asleep or she actually was syncopal. At the time of presentation, she denied having had syncope, but complained of dizziness and weakness. Temperature was 103 degrees Fahrenheit. She had a urine infection. Heart rate of 150. It initially was thought that she had atrial fibrillation; but upon further review, most likely she just had supraventricular tachycardia. Echocardiogram showed preserved left ventricular function. She did have some aortic regurgitation and pulmonary hypertension at 53 mmHg. PAST MEDICAL HISTORY: Remarkable for the above-mentioned conditions. PAST SURGICAL HISTORY: Hysterectomy, tonsillectomy, adenoidectomy. FAMILY HISTORY: Noncontributory. PERSONAL / SOCIAL HISTORY: She smoked for 30 years. Denies drinking or drug abuse. 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 She has not smoked since 1996. ALLERGIES: CODEINE. REVIEW OF SYSTEMS: Noncontributory. PHYSICAL EXAMINATION GENERAL: She is alert and coherent, appears to be comfortable. CARDIAC: Jugular veins were not distended. S1 and S2 were regular. There are no appreciable murmurs. LUNGS: Clear. ABDOMEN: Soft. Bowel sounds are present. EXTREMITIES: No clubbing, cyanosis or edema. LABORATORY STUDIES: As mentioned. IMPRESSION 1. Supraventricular tachycardia with rate up to 150 beats per minute. In the past has been successfully treated with atenolol 100 mg at 1/2 to 1 tablet per day. 2. Left bundle branch block. 3. Hypertension. 4. Diabetes. 5. Pulmonary hypertension at 53 mmHg. 6. Moderate mitral regurgitation. 7. Aortic regurgitation. 8. Urosepsis. 9. Negative nuclear stress test in 2008. 1. Unclear history of syncope, with the patient not complaining of this symptom at the time of presentation and alternatively was saying she may have just fallen asleep. Job#: [id number] cc:MD KITA SINHG MD
[2017-12-20] MEDS: ALPRAZOLAM 0.5 MG TAB PO SCH (21:59)
[2017-12-20 22:00] VITALS: BP 151/72
[2017-12-20 23:07] VITALS: BP 149/71
[2017-12-20 23:12] VITALS: BP 141/99
[2017-12-21] VITALS (7 sets, daily range): BP systolic 135–150; BP diastolic 68–72
[2017-12-21] MEDS: SODIUM CHLORIDE 0.9% 1000ML 1,000 ML IV SCH ×3 (04:25→18:12)
[2017-12-21] MEDS: PIPER-TAZ 3.375 GM 50 ML IV SCH ×3 (06:19→21:08)
[2017-12-21 06:40] LABS: MAGNESIUM 1.1 MG/DL (1.3-2.1)
[2017-12-21] MEDS ORDERED: MAGNESIUM SULFATE 2GM/50ML 50 ML IV ONE (08:15)
[2017-12-21] MEDS: BENAZEPRIL HCL 10 MG TAB PO SCH (08:42)
[2017-12-21] MEDS: AMLODIPINE BESYLATE 5 MG TAB PO SCH (08:42)
[2017-12-21] MEDS: DIGOXIN 0.125 MG TAB PO SCH (08:42)
[2017-12-21] MEDS: HYDROCHLOROTHIAZIDE 25 MG TAB PO SCH (08:42)
[2017-12-21] MEDS: DICYCLOMINE HCL 20 MG TAB PO SCH ×4 (08:42→20:46)
[2017-12-21] MEDS: METOPROLOL SUCCINATE 50 MG TAB XL PO SCH (08:43)
[2017-12-21] MEDS ORDERED: POTASSIUM CHLORIDE 20 MEQ TAB CR PO ONE (10:45)
[2017-12-21] MEDS ORDERED: POTASSIUM CHLORIDE 20 MEQ TAB CR PO STA (17:53)
[2017-12-21] MEDS: ACETAMINOPHEN 325 MG TAB PO PRN (18:12)
[2017-12-21] MEDS: GUAIFENESIN/DEXTROMETHORPHAN LIQD 5 ML UDC NG PRN (19:30)
[2017-12-21] MEDS: ALPRAZOLAM 0.5 MG TAB PO SCH (20:46)
[2017-12-21] MEDS: DIPHENOXYLATE/ATROPINE TAB PO PRN (22:08)
[2017-12-22] MEDS: SODIUM CHLORIDE 0.9% 1000ML 1,000 ML IV SCH ×3 (04:23→21:21)
[2017-12-22 05:10] VITALS: BP 145/74
[2017-12-22] MEDS: ACETAMINOPHEN 325 MG TAB PO PRN ×2 (06:01→16:50)
[2017-12-22] MEDS: PIPER-TAZ 3.375 GM 50 ML IV SCH ×3 (06:01→22:00)
[2017-12-22 06:39] LABS: BASOPHILS % 0.2 % (0.0-1.0); EOSINOPHILS # (AUTO) 0.1 (0.0-0.4); HEMATOCRIT 28.6 % (34.2-44.1); HEMOGLOBIN 9.4 g/dL (12.0-16.0); LYMPHOCYTES # (AUTO) 2.6 (1.0-3.2); LYMPHOCYTES % 24.3 % (18.0-39.1); MEAN CORPUSCULAR HEMOGLOBIN 28.7 pg (28-32); MEAN CORPUSCULAR HGB CONC 32.9 g/dL (31-35); MEAN CORPUSCULAR VOLUME 87.2 fL (81-99); MONOCYTES # (AUTO) 0.9 (0.2-0.8); MONOCYTES % 8.9 % (4.4-11.3); NEUTROPHILS # (AUTO) 6.8 (2.1-6.9); NEUTROPHILS % 64.8 % (38.7-80.0); PLATELET COUNT 430 x10e3/uL (140-360); RED BLOOD COUNT 3.28 x10e6/uL (3.6-5.1); RED CELL DISTRIBUTION WIDTH 15.8 % (11.7-14.4)
[2017-12-22 06:55] LABS: ALANINE AMINOTRANSFERASE 11 IU/L (0-55); ALBUMIN 2.1 g/dL (3.5-5.0); ALBUMIN/GLOBULIN RATIO 0.4 (0.8-2.0); ALKALINE PHOSPHATASE 54 IU/L (40-150); BLOOD UREA NITROGEN < 5 mg/dL (7-26); CALCIUM 8.7 mg/dL (8.4-10.2); CARBON DIOXIDE 18 mmol/L (22-29); CHLORIDE 107 mmol/L (98-107); CREATININE, SERUM 0.59 mg/dL (0.57-1.11); EST GLOMERULAR FILTRATION RATE > 60 ML/MIN (60-); GLUCOSE 110 mg/dL (74-118); MAGNESIUM 1.2 MG/DL (1.3-2.1); SODIUM 135 mmol/L (136-145)
[2017-12-22 06:57] LABS: BUN/CREATININE RATIO 8 (6-25)
[2017-12-22 07:41] VITALS: BP 135/67
[2017-12-22] MEDS: DICYCLOMINE HCL 20 MG TAB PO SCH ×4 (09:39→21:00)
[2017-12-22] MEDS: AMLODIPINE BESYLATE 5 MG TAB PO SCH (09:39)
[2017-12-22] MEDS: HYDROCHLOROTHIAZIDE 25 MG TAB PO SCH (09:39)
[2017-12-22] MEDS: BENAZEPRIL HCL 10 MG TAB PO SCH (09:40)
[2017-12-22] MEDS: METOPROLOL SUCCINATE 50 MG TAB XL PO SCH (09:40)
[2017-12-22] MEDS: DIGOXIN 0.125 MG TAB PO SCH (09:41)
--- NOTE | 2017-12-22 10:10 | Cardiology Report ---
DATE OF STUDY: December 19, 2017 ECHOCARDIOGRAM M-MODE: Dilated left atrium. Borderline left ventricular hypertrophy. Diminished left ventricular contractility. Normal mitral and aortic valves. No pericardial effusion. SECTOR SCAN: Dilated left atrium. Borderline left ventricular hypertrophy. Diminished left ventricular contractility. Ejection fraction of 45% to 50%. Mitral, aortic and tricuspid valves are grossly normal. There is no pericardial effusion. The inferior basal wall appears to be hypokinetic extending to a portion of the apex. The apex cannot be excluded for mural thrombus. CARDIAC DOPPLER STUDY WITH COLOR: There is 2+ aortic and tricuspid regurgitation and 1 to 2+ mitral regurgitation. Pulmonary artery systolic pressure estimated at 53 mmHg. CONCLUSIONS 1. The inferobasal and apical wall appear to be hypokinetic. Consider coronary artery disease. 2. Cannot exclude apical mural thrombus. If clinically indicated, consider contrast echocardiography. 3. Left ventricular hypertrophy with ejection fraction of 45% to 50%. 4. Suggestion of diastolic dysfunction. 5. Moderate aortic regurgitation. 6. Mild to moderate mitral regurgitation with dilated left atrium. 7. Moderate tricuspid regurgitation with moderate pulmonary hypertension. Pulmonary artery systolic pressure estimated at 53 mmHg. Job#: [id number] cc:MD ASTER HANDY MD
[2017-12-22 11:45] VITALS: BP 135/65
[2017-12-22 16:40] VITALS: BP 140/66
[2017-12-22] MEDS: GUAIFENESIN/DEXTROMETHORPHAN LIQD 5 ML UDC NG PRN (16:50)
--- NOTE | 2017-12-22 17:34 | Diagnostic Imaging Report ---
PROCEDURE: A single AP view of the chest. COMPARISON: Chest x-ray 12/18/2017. INDICATIONS: COUGH FINDINGS: Lines/tubes: None. Lungs: The lungs are hyper inflated. Mild central pulmonary venous congestion. Previous interstitial edema has significantly improved. Mild left basilar atelectasis. Pleura: There is no pleural effusion or pneumothorax. Heart and mediastinum: The heart and the mediastinum are unremarkable. Atherosclerotic calcifications in the aorta. Bones: No acute bony abnormality. IMPRESSION: Improved interstitial edema with residual central pulmonary venous congestion. Dictated by: Claus Flowers M.D. on 12/22/2017 at 17:36 Electronically approved by: Claus Flowers M.D. on 12/22/2017 at 17:36
[2017-12-22 19:38] VITALS: BP 131/59
[2017-12-22] MEDS: ALPRAZOLAM 0.5 MG TAB PO SCH (21:00)
[2017-12-23] VITALS (8 sets, daily range): BP systolic 123–141; BP diastolic 61–76
[2017-12-23] MEDS: GUAIFENESIN/DEXTROMETHORPHAN LIQD 5 ML UDC NG PRN (01:43)
[2017-12-23] MEDS: ACETAMINOPHEN 325 MG TAB PO PRN ×2 (01:43→17:59)
[2017-12-23] MEDS: DIPHENOXYLATE/ATROPINE TAB PO PRN (04:44)
[2017-12-23] MEDS: PIPER-TAZ 3.375 GM 50 ML IV SCH ×3 (06:00→21:24)
[2017-12-23] MEDS ORDERED: MAGNESIUM SULFATE 2GM/50ML 50 ML IV ONE (08:15)
[2017-12-23] MEDS: BENAZEPRIL HCL 10 MG TAB PO SCH (08:28)
[2017-12-23] MEDS: HYDROCHLOROTHIAZIDE 25 MG TAB PO SCH (08:28)
[2017-12-23] MEDS: DICYCLOMINE HCL 20 MG TAB PO SCH ×4 (08:28→21:23)
[2017-12-23] MEDS: AMLODIPINE BESYLATE 5 MG TAB PO SCH (08:28)
[2017-12-23] MEDS: METOPROLOL SUCCINATE 50 MG TAB XL PO SCH (08:29)
[2017-12-23] MEDS: DIGOXIN 0.125 MG TAB PO SCH (08:38)
[2017-12-23] MEDS: SODIUM CHLORIDE 0.9% 1000ML 1,000 ML IV SCH (12:17)
[2017-12-23] MEDS ORDERED: COLESTIPOL HCL 1 G TAB PO ONE (18:27)
[2017-12-23] MEDS: ALPRAZOLAM 0.5 MG TAB PO SCH (21:23)
[2017-12-24] VITALS (7 sets, daily range): BP systolic 122–138; BP diastolic 61–69
[2017-12-24] MEDS: PIPER-TAZ 3.375 GM 50 ML IV SCH ×3 (06:06→20:36)
[2017-12-24] MEDS: DICYCLOMINE HCL 20 MG TAB PO SCH ×4 (09:00→20:36)
[2017-12-24] MEDS: BENAZEPRIL HCL 10 MG TAB PO SCH (09:00)
[2017-12-24] MEDS: COLESTIPOL HCL 1 G TAB PO SCH ×2 (09:00→17:00)
[2017-12-24] MEDS: METOPROLOL SUCCINATE 50 MG TAB XL PO SCH (09:00)
[2017-12-24] MEDS: HYDROCHLOROTHIAZIDE 25 MG TAB PO SCH (09:00)
[2017-12-24] MEDS: DIGOXIN 0.125 MG TAB PO SCH (09:00)
[2017-12-24] MEDS: AMLODIPINE BESYLATE 5 MG TAB PO SCH (09:00)
[2017-12-24 12:08] LABS: WBC,FECAL (FECAL LACTOFERRIN) NEGATIVE (NEGATIVE)
[2017-12-24 12:43] LABS: C DIFFICILE TOXIN A&B AMP PROB NEGATIVE (NEGATIVE)
[2017-12-24] MEDS: SODIUM CHLORIDE 0.9% 1000ML 1,000 ML IV SCH (16:15)
[2017-12-24] MEDS: ALPRAZOLAM 0.5 MG TAB PO SCH (17:19)
[2017-12-24] MEDS: GUAIFENESIN/DEXTROMETHORPHAN LIQD 5 ML UDC NG PRN (20:36)
[2017-12-24] MEDS: ACETAMINOPHEN 325 MG TAB PO PRN (20:53)
[2017-12-25] VITALS: BP 130/63
[2017-12-25 04:00] VITALS: BP 136/81
[2017-12-25] MEDS: PIPER-TAZ 3.375 GM 50 ML IV SCH ×3 (05:33→21:03)
[2017-12-25] MEDS: SODIUM CHLORIDE 0.9% 1000ML 1,000 ML IV SCH ×3 (06:33→21:03)
[2017-12-25 08:12] VITALS: BP 160/66
[2017-12-25 08:29] LABS: ALANINE AMINOTRANSFERASE 8 IU/L (0-55); ALBUMIN 2.2 g/dL (3.5-5.0); ALBUMIN/GLOBULIN RATIO 0.5 (0.8-2.0); ALKALINE PHOSPHATASE 57 IU/L (40-150); ANION GAP 16.1 mmol/L (8-16); BLOOD UREA NITROGEN < 5 mg/dL (7-26); CALCIUM 8.3 mg/dL (8.4-10.2); CARBON DIOXIDE 16 mmol/L (22-29); CHLORIDE 106 mmol/L (98-107); EST GLOMERULAR FILTRATION RATE > 60 ML/MIN (60-); GLUCOSE 98 mg/dL (74-118); MAGNESIUM 1.6 MG/DL (1.3-2.1); POTASSIUM 4.1 mmol/L (3.5-5.1); SODIUM 134 mmol/L (136-145)
[2017-12-25 08:34] LABS: BUN/CREATININE RATIO 8 (6-25)
[2017-12-25] MEDS: METOPROLOL SUCCINATE 50 MG TAB XL PO SCH (09:00)
[2017-12-25] MEDS: BENAZEPRIL HCL 10 MG TAB PO SCH (09:00)
[2017-12-25] MEDS: COLESTIPOL HCL 1 G TAB PO SCH ×2 (09:00→17:00)
[2017-12-25] MEDS: HYDROCHLOROTHIAZIDE 25 MG TAB PO SCH (09:00)
[2017-12-25] MEDS: DIGOXIN 0.125 MG TAB PO SCH (09:00)
[2017-12-25] MEDS: DICYCLOMINE HCL 20 MG TAB PO SCH ×4 (09:00→20:11)
[2017-12-25] MEDS: AMLODIPINE BESYLATE 5 MG TAB PO SCH (09:00)
[2017-12-25 12:15] VITALS: BP 147/66
[2017-12-25 16:36] VITALS: BP 128/61
[2017-12-25 20:00] VITALS: BP 145/66
[2017-12-25] MEDS: ALPRAZOLAM 0.5 MG TAB PO SCH (20:11)
[2017-12-25] MEDS: ACETAMINOPHEN 325 MG TAB PO PRN (20:11)
[2017-12-25] MEDS: GUAIFENESIN/DEXTROMETHORPHAN LIQD 5 ML UDC NG PRN (21:03)
[2017-12-26] VITALS (9 sets, daily range): BP systolic 127–160; BP diastolic 58–77
[2017-12-26] MEDS: PIPER-TAZ 3.375 GM 50 ML IV SCH ×3 (05:14→22:29)
[2017-12-26 07:02] LABS: BASOPHILS # (AUTO) 0.1 (0.0-0.1); BASOPHILS % 0.9 % (0.0-1.0); EOSINOPHILS # (AUTO) 0.1 (0.0-0.4); EOSINOPHILS % 1.6 % (0.0-6.0); HEMATOCRIT 26.6 % (34.2-44.1); HEMOGLOBIN 8.7 g/dL (12.0-16.0); LYMPHOCYTES # (AUTO) 1.8 (1.0-3.2); LYMPHOCYTES % 30.4 % (18.0-39.1); MEAN CORPUSCULAR HEMOGLOBIN 28.7 pg (28-32); MEAN CORPUSCULAR HGB CONC 32.7 g/dL (31-35); MEAN CORPUSCULAR VOLUME 87.8 fL (81-99); MONOCYTES # (AUTO) 0.6 (0.2-0.8); MONOCYTES % 11.1 % (4.4-11.3); NEUTROPHILS # (AUTO) 3.2 (2.1-6.9); NEUTROPHILS % 55.5 % (38.7-80.0); PLATELET COUNT 464 x10e3/uL (140-360); RED BLOOD COUNT 3.03 x10e6/uL (3.6-5.1); RED CELL DISTRIBUTION WIDTH 15.5 % (11.7-14.4)
[2017-12-26 07:26] LABS: ALANINE AMINOTRANSFERASE 9 IU/L (0-55); ALBUMIN 2.4 g/dL (3.5-5.0); ALBUMIN/GLOBULIN RATIO 0.5 (0.8-2.0); ALKALINE PHOSPHATASE 64 IU/L (40-150); ANION GAP 15.1 mmol/L (8-16); BLOOD UREA NITROGEN < 5 mg/dL (7-26); CALCIUM 8.6 mg/dL (8.4-10.2); CARBON DIOXIDE 20 mmol/L (22-29); CHLORIDE 107 mmol/L (98-107); CREATININE, SERUM 0.57 mg/dL (0.57-1.11); EST GLOMERULAR FILTRATION RATE > 60 ML/MIN (60-); GLUCOSE 95 mg/dL (74-118); POTASSIUM 3.1 mmol/L (3.5-5.1); SODIUM 139 mmol/L (136-145)
[2017-12-26 07:28] LABS: BUN/CREATININE RATIO 9 (6-25)
[2017-12-26 07:30] LABS: MAGNESIUM 1.1 MG/DL (1.3-2.1)
[2017-12-26] MEDS ORDERED: MAGNESIUM SULFATE 2GM/50ML 50 ML IV ONE (07:45)
[2017-12-26] MEDS ORDERED: POTASSIUM CHLORIDE 20 MEQ TAB CR PO STA (09:05)
[2017-12-26] MEDS: COLESTIPOL HCL 1 G TAB PO SCH ×3 (09:14→19:00)
[2017-12-26] MEDS: AMLODIPINE BESYLATE 5 MG TAB PO SCH (09:14)
[2017-12-26] MEDS: DICYCLOMINE HCL 20 MG TAB PO SCH ×5 (09:14→20:38)
[2017-12-26] MEDS: HYDROCHLOROTHIAZIDE 25 MG TAB PO SCH (09:14)
[2017-12-26] MEDS: METOPROLOL SUCCINATE 50 MG TAB XL PO SCH (09:14)
[2017-12-26] MEDS: DIGOXIN 0.125 MG TAB PO SCH (09:14)
[2017-12-26] MEDS: BENAZEPRIL HCL 10 MG TAB PO SCH (09:14)
[2017-12-26] MEDS ORDERED: SODIUM BICARBONATE 650 MG TAB PO ONE (09:15)
[2017-12-26] MEDS: SODIUM CHLORIDE 0.9% 1000ML 1,000 ML IV SCH (17:12)
[2017-12-26] MEDS: GUAIFENESIN/DEXTROMETHORPHAN LIQD 5 ML UDC NG PRN (19:00)
[2017-12-26] MEDS: ALPRAZOLAM 0.5 MG TAB PO PRN (20:38)
[2017-12-27] VITALS (8 sets, daily range): BP systolic 128–138; BP diastolic 60–70
[2017-12-27] MEDS: SODIUM CHLORIDE 0.9% 1000ML 1,000 ML IV SCH ×2 (01:27→11:30)
[2017-12-27] MEDS ORDERED: MAGNESIUM SULFATE 2GM/50ML 50 ML IV ONE (02:30)
[2017-12-27] MEDS: PIPER-TAZ 3.375 GM 50 ML IV SCH ×4 (05:45→22:56)
[2017-12-27 07:22] LABS: ALANINE AMINOTRANSFERASE 8 IU/L (0-55); ALBUMIN 2.5 g/dL (3.5-5.0); ALBUMIN/GLOBULIN RATIO 0.5 (0.8-2.0); ALKALINE PHOSPHATASE 73 IU/L (40-150); ANION GAP 12.8 mmol/L (8-16); BLOOD UREA NITROGEN < 5 mg/dL (7-26); CALCIUM 9.1 mg/dL (8.4-10.2); CARBON DIOXIDE 23 mmol/L (22-29); CHLORIDE 107 mmol/L (98-107); CREATININE, SERUM 0.67 mg/dL (0.57-1.11); EST GLOMERULAR FILTRATION RATE > 60 ML/MIN (60-); GLUCOSE 98 mg/dL (74-118); MAGNESIUM 2.3 MG/DL (1.3-2.1); POTASSIUM 3.8 mmol/L (3.5-5.1); SODIUM 139 mmol/L (136-145)
[2017-12-27 07:26] LABS: BUN/CREATININE RATIO 7 (6-25)
[2017-12-27] MEDS: HYDROCHLOROTHIAZIDE 25 MG TAB PO SCH (09:10)
[2017-12-27] MEDS: DIGOXIN 0.125 MG TAB PO SCH (09:10)
[2017-12-27] MEDS: DICYCLOMINE HCL 20 MG TAB PO SCH ×4 (09:10→20:00)
[2017-12-27] MEDS: COLESTIPOL HCL 1 G TAB PO SCH ×2 (09:10→17:32)
[2017-12-27] MEDS: METOPROLOL SUCCINATE 50 MG TAB XL PO SCH (09:11)
[2017-12-27] MEDS: BENAZEPRIL HCL 10 MG TAB PO SCH (09:11)
[2017-12-27] MEDS: AMLODIPINE BESYLATE 5 MG TAB PO SCH (09:11)
[2017-12-27 15:11] LABS: CALCIUM IONIZED 1.1 mmol/L (1.09-1.30)
--- NOTE | 2017-12-27 15:17 | Consultation ---
DATE OF CONSULTATION: December 26, 2017 ENDOCRINE CONSULTATION This is a patient of Dr. Esau Echevarria. Thank you very much for referring this patient. HISTORY OF PRESENT ILLNESS: This is a 77-year-old white female who is referred to me for evaluation of hypocalcemia, hypomagnesemia and hypokalemia. Patient initially had a gallbladder surgery. Following that, patient developed acute urinary tract infection, sepsis and electrolyte imbalance. Patient does not have history of any kidney stones in the past. She has history of atrial fibrillation and has been on digoxin for some time. She also has history of hypertension. Patient is presently on several medications including digoxin, hydrochlorothiazide, metoprolol and amlodipine. She is also getting antibiotics and also the benazepril. No history of kidney stones in the past. She is an ex-smoker. PHYSICAL EXAMINATION: GENERAL: Today the patient is alert, awake, a little bit apprehensive. She is thin-built. VITAL SIGNS: Her heart rate is around 78. Blood pressure 130/80 mmHg. HEENT: Examination essentially unremarkable. Thyroid is palpable. Clinically she is near euthyroid. CHEST: Bilateral vesicular breathing. She has mild bronchospasm. CARDIAC: Both 1st and 2nd heart sounds. There is no 3rd or 4th heart sound. Ejection sound grade 2/6. CLINICAL IMPRESSION: Hypokalemia, hypomagnesemia and hypocalcemia. Rule out hyperaldosteronism and hypoparathyroidism. She also has history of longstanding of hypertension. Status post urosepsis, dehydration, hypertension, and chronic atrial fibrillation. The plan at this time is to review her old information. Would like to monitor her serum PTH levels. Do a PTH level, free T4, TSH, testosterone levels. Monitor her blood sugars closely and also do a hemoglobin A1c. In the meantime, I would suggest that we stop the hydrochlorothiazide as well. Thanks again for referring this patient. I will be following this patient with you. Job#: [id number] ANIYAH
[2017-12-27 15:38] LABS: FREE T4 (FREE THYROXINE) 1.52 ng/dL (0.9-1.8); THYROID STIMULATING HORMONE 0.037 uIU/mL (0.350-4.940)
[2017-12-28] VITALS (8 sets, daily range): BP systolic 133–146; BP diastolic 61–76
[2017-12-28] MEDS: SODIUM CHLORIDE 0.9% 1000ML 1,000 ML IV SCH ×2 (04:34→20:16)
[2017-12-28] MEDS: PIPER-TAZ 3.375 GM 50 ML IV SCH ×3 (05:57→22:39)
[2017-12-28] MEDS: DICYCLOMINE HCL 20 MG TAB PO SCH ×4 (08:27→20:16)
[2017-12-28] MEDS: COLESTIPOL HCL 1 G TAB PO SCH ×2 (08:27→17:05)
[2017-12-28] MEDS: DIGOXIN 0.125 MG TAB PO SCH (08:27)
[2017-12-28] MEDS: METOPROLOL SUCCINATE 50 MG TAB XL PO SCH (08:28)
[2017-12-28] MEDS: BENAZEPRIL HCL 10 MG TAB PO SCH (08:28)
[2017-12-28] MEDS: AMLODIPINE BESYLATE 5 MG TAB PO SCH (08:28)
[2017-12-28 11:15] LABS: BASOPHILS # (AUTO) 0.1 (0.0-0.1); BASOPHILS % 0.7 % (0.0-1.0); EOSINOPHILS % 0.4 % (0.0-6.0); HEMATOCRIT 28.2 % (34.2-44.1); HEMOGLOBIN 9.1 g/dL (12.0-16.0); LYMPHOCYTES # (AUTO) 1.9 (1.0-3.2); LYMPHOCYTES % 26.5 % (18.0-39.1); MEAN CORPUSCULAR HEMOGLOBIN 28.4 pg (28-32); MEAN CORPUSCULAR HGB CONC 32.3 g/dL (31-35); MEAN CORPUSCULAR VOLUME 88.1 fL (81-99); MONOCYTES # (AUTO) 0.6 (0.2-0.8); NEUTROPHILS # (AUTO) 4.4 (2.1-6.9); NEUTROPHILS % 63.1 % (38.7-80.0); PLATELET COUNT 507 x10e3/uL (140-360); RED CELL DISTRIBUTION WIDTH 15.5 % (11.7-14.4)
[2017-12-28 11:30] LABS: ANION GAP 13.7 mmol/L (8-16); BLOOD UREA NITROGEN < 5 mg/dL (7-26); CALCIUM 8.8 mg/dL (8.4-10.2); CARBON DIOXIDE 22 mmol/L (22-29); CHLORIDE 108 mmol/L (98-107); CREATININE, SERUM 0.62 mg/dL (0.57-1.11); EST GLOMERULAR FILTRATION RATE > 60 ML/MIN (60-); GLUCOSE 121 mg/dL (74-118); MAGNESIUM 1.3 MG/DL (1.3-2.1); POTASSIUM 3.7 mmol/L (3.5-5.1); SODIUM 140 mmol/L (136-145)
[2017-12-28 11:32] LABS: BUN/CREATININE RATIO 8 (6-25)
[2017-12-28] MEDS: ALPRAZOLAM 0.5 MG TAB PO PRN (20:19)
[2017-12-28] MEDS ORDERED: MAGNESIUM SULFATE 2GM/50ML 50 ML IV ONE (23:30)
[2017-12-29] VITALS: BP 127/64
[2017-12-29 04:00] VITALS: BP 145/79
[2017-12-29] MEDS: PIPER-TAZ 3.375 GM 50 ML IV SCH ×2 (06:09→13:17)
[2017-12-29 06:44] LABS: BASOPHILS # (AUTO) 0.1 (0.0-0.1); BASOPHILS % 0.8 % (0.0-1.0); EOSINOPHILS # (AUTO) 0.1 (0.0-0.4); EOSINOPHILS % 1.1 % (0.0-6.0); HEMATOCRIT 28.7 % (34.2-44.1); HEMOGLOBIN 9.1 g/dL (12.0-16.0); LYMPHOCYTES # (AUTO) 2.3 (1.0-3.2); LYMPHOCYTES % 34.5 % (18.0-39.1); MEAN CORPUSCULAR HEMOGLOBIN 28.6 pg (28-32); MEAN CORPUSCULAR HGB CONC 31.7 g/dL (31-35); MEAN CORPUSCULAR VOLUME 90.3 fL (81-99); MONOCYTES # (AUTO) 0.6 (0.2-0.8); MONOCYTES % 9.5 % (4.4-11.3); NEUTROPHILS # (AUTO) 3.6 (2.1-6.9); NEUTROPHILS % 53.8 % (38.7-80.0); PLATELET COUNT 458 x10e3/uL (140-360); RED BLOOD COUNT 3.18 x10e6/uL (3.6-5.1); RED CELL DISTRIBUTION WIDTH 15.5 % (11.7-14.4)
[2017-12-29 07:12] LABS: ANION GAP 11.8 mmol/L (8-16); BLOOD UREA NITROGEN < 5 mg/dL (7-26); BUN/CREATININE RATIO 8 (6-25); CALCIUM 8.9 mg/dL (8.4-10.2); CARBON DIOXIDE 23 mmol/L (22-29); CHLORIDE 110 mmol/L (98-107); CREATININE, SERUM 0.62 mg/dL (0.57-1.11); EST GLOMERULAR FILTRATION RATE > 60 ML/MIN (60-); GLUCOSE 97 mg/dL (74-118); MAGNESIUM 1.8 MG/DL (1.3-2.1); POTASSIUM 3.8 mmol/L (3.5-5.1); SODIUM 141 mmol/L (136-145)
[2017-12-29 07:54] VITALS: BP 153/77
[2017-12-29 08:40] VITALS: BP 153/77
[2017-12-29] MEDS: DICYCLOMINE HCL 20 MG TAB PO SCH ×3 (08:41→16:27)
[2017-12-29] MEDS: DIGOXIN 0.125 MG TAB PO SCH (08:41)
[2017-12-29] MEDS: COLESTIPOL HCL 1 G TAB PO SCH ×2 (08:41→16:27)
[2017-12-29] MEDS: BENAZEPRIL HCL 10 MG TAB PO SCH (08:42)
[2017-12-29] MEDS: METOPROLOL SUCCINATE 50 MG TAB XL PO SCH (08:42)
[2017-12-29] MEDS: AMLODIPINE BESYLATE 5 MG TAB PO SCH (08:42)
[2017-12-29 11:52] VITALS: BP 134/68
[2017-12-29] MEDS: SODIUM CHLORIDE 0.9% 1000ML 1,000 ML IV SCH (13:17)
[2017-12-29 15:52] VITALS: BP 137/65
[2017-12-30] MEDS ORDERED: FERROUS SULFATE 325 MG TAB PO SCH (09:00)
== END 2017-12-29 19:07 | DRG 872 ==
LOC: ER 23:00 → ERHOLD 12-18 04:30 → IMCU 12-18 15:41 → MED/SURG3 12-23 20:19
PROVIDERS: ADMIT Family Medicine; ATTEND Family Medicine
DX: A41.9 Sepsis, unspecified organism (principal); E87.1 Hypo-osmolality and hyponatremia; I47.1 Supraventricular tachycardia; I50.30 Unspecified diastolic (congestive) heart failure; E83.51 Hypocalcemia; E83.42 Hypomagnesemia; E26.9 Hyperaldosteronism, unspecified; E86.0 Dehydration; E87.6 Hypokalemia; I08.0 Rheumatic disorders of both mitral and aortic valves; I44.7 Left bundle-branch block, unspecified; E11.9 Type 2 diabetes mellitus without complications; Z79.4 Long term (current) use of insulin; E78.5 Hyperlipidemia, unspecified; K91.5 Postcholecystectomy syndrome; R15.2 Fecal urgency; R19.7 Diarrhea, unspecified; L89.151 Pressure ulcer of sacral region, stage 1; Z79.01 Long term (current) use of anticoagulants; Z79.899 Other long term (current) drug therapy; Z87.891 Personal history of nicotine dependence; D64.9 Anemia, unspecified; I51.3 Intracardiac thrombosis, not elsewhere classified; I27.20 Pulmonary hypertension, unspecified; I11.0 Hypertensive heart disease with heart failure
CPT/HCPCS: 36415; 51700; 71045; 74177; 74181; 80048; 80053; 81001; 82088; 82150; 82270; 82306; 82330; 82533; 82550; 82553; 83036; 83605; 83630; 83690; 83735; 83880; 84100; 84439; 84443; 84449; 84480; 84484; 85025; 85651; 86140; 87040; 87045; 87086; 87177; 87493; 93005; 93306; 96361; 99285; J2543; J3480; J7030; Q9967